=== PATIENT | male | born 1930 | race Caucasian/White ===

== ENCOUNTER → 2016-08-30 | Outpatient (CLI) | payer BC ==
[~2016-08-30] MED LIST: AMLO2.5T PO; ASCO500T16 PO; ASPCH81X PO; ATOR10TA88 PO; CETI10TA73 PO; CYAN10005 PO; DONE23TA PO; ERGO500037 PO; FOLI400T41 PO; HYDR-4715 PO; LACTCAP3 PO; LPT/40 PO; NRV/5 PO; OMEP20CA9 PO; PLV75 PO; RMNER16 PO; [UNRECOGNIZED DRUG - CODE] PO
[2016-08-30 12:46] LABS: ALT/SGPT 21 U/L (12-78); CHOLESTEROL 177 mg/dl (0-200); CHOLESTEROL/HDL RATIO 2.5; HDL CHOLESTEROL 70 mg/dl; TRIGLYCERIDES 88 mg/dl (0-150); VERY LOW DENSITY LIPOPROT CALC 18 mg/dl
== END | disposition home or self-care (01) ==
LOC: C.LAB 11:14
PROVIDERS: ATTEND Internal Medicine Cardiovascular Disease
DX: E78.2 Mixed hyperlipidemia (principal); Z79.899 Other long term (current) drug therapy

== ENCOUNTER → 2016-11-29 | Outpatient (CLI) | payer BC ==
[~2016-11-29] MED LIST changes: +ACET325T96 PO; +AMLO-110 PO; +ASPI81TA28 PO; +ATOR-24 PO; +ATOR10TA82 PO; -ATOR10TA88 PO; +BISA10SU3 PR; +CLOP1TAB15 PO; +IPRASOL4 INH; +QUET1TAB30 PO; +RXNS10 PO; +SENN-61 PO; +SERT25TA PO
[2016-11-29 12:25] LABS: BASO % 0.4 %; BASO ABS # 0.03 K/uL (0-0.2); COMPLETE YES; EOS % 3.4 %; HEMATOCRIT 45.7 % (42-52); IG% 0.3 %; LYMPH % 24.8 %; LYMPH ABS # 1.81 K/uL (1.2-3.4); MEAN CORPUSCULAR HEMOGLOBIN 30.1 pg (25-34); MEAN CORPUSCULAR HGB CONC 31.7 g/dl (32-36); MEAN PLATELET VOLUME 10.3 fL (7.4-10.4); MONO % 6.4 %; NEUT % 64.7 %; PLATELET COUNT 146 K/uL (130-400); RED BLOOD COUNT 4.81 M/uL (4.7-6.1); WHITE BLOOD COUNT 7.29 K/uL (4.8-10.8)
[2016-11-29 14:06] LABS: BLOOD UREA NITROGEN 23 mg/dl (7-18); BUN/CREATININE RATIO 19.4 (10-20); CALCIUM 9.3 mg/dl (8.5-10.1); CARBON DIOXIDE 28 mmol/L (21-32); CHLORIDE 111 mmol/L (98-107); GLUCOSE 110 mg/dl (70-99); POTASSIUM 4.1 mmol/L (3.5-5.1); SODIUM 147 mmol/L (136-145)
== END | disposition home or self-care (01) ==
LOC: C.LAB 11:13
PROVIDERS: ATTEND Internal Medicine Cardiovascular Disease
DX: Z79.899 Other long term (current) drug therapy (principal)

== ENCOUNTER 2016-12-30 02:03 | Emergency (ER) | payer BC ==
[~2016-12-30] VITALS: Ht 185.4 cm; Wt 82.4 kg
[~2016-12-30 02:03] MED LIST changes: -ACET325T96 PO; -AMLO-110 PO; -AMLO2.5T PO; -ASPCH81X PO; -ASPI81TA28 PO; -ATOR-24 PO; -BISA10SU3 PR; -CETI10TA73 PO; -CLOP1TAB15 PO; -IPRASOL4 INH; -LPT/40 PO; -NRV/5 PO; -PLV75 PO; -QUET1TAB30 PO; -RXNS10 PO; -SENN-61 PO; -SERT25TA PO; -[UNRECOGNIZED DRUG - CODE] PO
[2016-12-30 02:10] VITALS: TEMP 37.1
[2016-12-30 02:22] VITALS: O2SAT 95
[2016-12-30 02:23] VITALS: Ht 185.4 cm; Wt 82.4 kg
[2016-12-30] MEDS ORDERED: [UNRECOGNIZED DRUG - CODE] PO (02:24)
[2016-12-30] MEDS ORDERED: AMLO2.5T PO (02:24)
--- NOTE | 2016-12-30 02:24 | EMERGENCY ROOM VISIT NOTE ---
History Report prepared by Shastaibrodrigo: Neville Sierra Under the Supervision of: Dr. Jordan Herrera D.O. First contact with patient: 02:06 Chief Complaint: ALTERED MENTAL STATUS Stated Complaint: ALTERED MENTAL STATUS History of Present Illness The patient is an 86 year old male who presents to the Emergency Room with acute altered mental status this morning. Per nursing staff, the patient's called an ambulance because the patient appeared to be more confused than baseline. The patient does have a history of dementia. The patient's thought the patient had a subjective fever. The patient's heart rate has been low before per . She is unsure if he had some kind of infection. History is limited secondary to altered mental status. Source of History: patient, spouse/significant other, nursing staff History Limited By: AMS Onset: this morning Position: other (global) Quality: other (altered mental status) Timing: other (acute) Associated Symptoms: + fevers (subjective to ) Review of Systems ROS is limited secondary to altered mental status. Past Medical & Surgical Medical Problems: (1) ABDOM AORTIC ANEURYSM (2) Altered mental status (3) DIAB W NEURO MANIFEST, TYPE II OR UNSPEC TYPE, UNCONTROLLED (4) HYPERTENSION NOS (5) Prostatectomy (6) PURE HYPERCHOLESTEROLEM (7) Urinary incontinence Family History Noncontributory due advanced age Social History Smoking Status: Unknown if Ever Smoked Alcohol Use: occasionally Drug Use: none Marital Status: Housing Status: lives with family Occupation Status: retired Current/Historical Medications Scheduled Amlodipine Besylate (Norvasc), 2.5 MG PO DAILY Ascorbic Acid (Ascorbic Acid), 500 MG PO DAILY Atorvastatin (Lipitor), 10 MG PO DAILY Cetirizine Hcl (All Day Allergy), 1 TAB PO DAILY Cyanocobalamin (Vitamin B-12), 1,000 MCG PO DAILY Donepezil Hydrochloride (Aricept), 23 MG PO DAILY Ergocalciferol (Vitamin D 65874 Unit), 50,000 UNIT PO WK Folic Acid (Folvite), 400 MCG PO DAILY Galantamine Hydrobromide (Razadyne Ext Rel), 24 MG PO DAILY Omeprazole (Prilosec), 20 MG PO DAILY Allergies Coded Allergies: Haloperidol (Verified Allergy, Intermediate, ERYTHEMA MULTIFORME AT INJECTION SITES, 12/30/16) erythema multiforme at injection sites Physical Exam Vital Signs Date Time Temp Pulse Resp B/P Pulse Ox O2 Delivery O2 Flow Rate FiO2 12/30/16 02:57 40 156/74 61 162/88 65 155/133 12/30/16 02:22 95 Room Air 12/30/16 02:22 95 Room Air 12/30/16 02:15 36 12/30/16 02:10 37.1 44 25 161/68 96 Room Air Physical Exam GENERAL: Awake, alert, pleasantly confused but interactive. HENT: Normocephalic, atraumatic. Oropharynx unremarkable. EYES: Normal conjunctiva. Sclera non-icteric. NECK: Supple. No nuchal rigidity. FROM. No JVD. RESPIRATORY: Clear to auscultation. CARDIAC: Regular rate, normal rhythm. Extremities warm and well perfused. Pulses equal. ABDOMEN: Soft, non-distended. No tenderness to palpation. No rebound or guarding. No masses. RECTAL: Deferred. MUSCULOSKELETAL: Chest examination reveals no tenderness. The back is symmetrical on inspection without obvious abnormality. There is no CVA tenderness to palpation. No joint edema. LOWER EXTREMITIES: Calves are equal size bilaterally and non-tender. No edema. No discoloration. NEURO: Normal sensorium. No sensory or motor deficits noted. SKIN: No rash or jaundice noted. Medical Decision & Procedures ER Provider Diagnostic Interpretation: X ray results as stated below per my interpretation. Chest One View Portable: Negative for infiltrate. Laboratory Results 12/30/16 02:20 Red Blood Count 4.53, Mean Corpuscular Volume 95.6, Mean Corpuscular Hemoglobin 30.9, Mean Corpuscular Hemoglobin Concent 32.3, Mean Platelet Volume 9.9, Neutrophils (%) (Auto) 56.7, Lymphocytes (%) (Auto) 32.4, Monocytes (%) (Auto) 6.3, Eosinophils (%) (Auto) 3.7, Basophils (%) (Auto) 0.6, Neutrophils # (Auto) 3.93, Lymphocytes # (Auto) 2.25, Monocytes # (Auto) 0.44, Eosinophils # (Auto) 0.26, Basophils # (Auto) 0.04 12/30/16 02:20 Test 12/30/16 02:20 12/30/16 02:29 12/30/16 03:00 White Blood Count 6.94 K/uL (4.8-10.8) Red Blood Count 4.53 M/uL (4.7-6.1) Hemoglobin 14.0 g/dL (14.0-18.0) Hematocrit 43.3 % (42-52) Mean Corpuscular Volume 95.6 fL (80-100) Mean Corpuscular Hemoglobin 30.9 pg (25-34) Mean Corpuscular Hemoglobin Concent 32.3 g/dl (32-36) Platelet Count 146 K/uL (130-400) Mean Platelet Volume 9.9 fL (7.4-10.4) Neutrophils (%) (Auto) 56.7 % Lymphocytes (%) (Auto) 32.4 % Monocytes (%) (Auto) 6.3 % Eosinophils (%) (Auto) 3.7 % Basophils (%) (Auto) 0.6 % Neutrophils # (Auto) 3.93 K/uL (1.4-6.5) Lymphocytes # (Auto) 2.25 K/uL (1.2-3.4) Monocytes # (Auto) 0.44 K/uL (0.11-0.59) Eosinophils # (Auto) 0.26 K/uL (0-0.5) Basophils # (Auto) 0.04 K/uL (0-0.2) RDW Standard Deviation 48.6 fL (36.4-46.3) RDW Coefficient of Variation 13.8 % (11.5-14.5) Immature Granulocyte % (Auto) 0.3 % Immature Granulocyte # (Auto) 0.02 K/uL (0.00-0.02) Anion Gap 9.0 mmol/L (3-11) Est Creatinine Clear Calc Drug Dose 53.5 ml/min Estimated GFR () 69.6 Estimated GFR (Non- 60.0 BUN/Creatinine Ratio 23.6 (10-20) Calcium Level 8.4 mg/dl (8.5-10.1) Total Bilirubin 0.3 mg/dl (0.2-1) Direct Bilirubin < 0.1 mg/dl (0-0.2) Aspartate Amino Transf (AST/SGOT) 18 U/L (15-37) Alanine Aminotransferase (ALT/SGPT) 25 U/L (12-78) Alkaline Phosphatase 66 U/L (45-117) Total Protein 6.6 gm/dl (6.4-8.2) Albumin 3.5 gm/dl (3.4-5.0) Bedside Lactic Acid Venous 0.77 mmol/L (0.90-1.70) Urine Color YELLOW Urine Appearance SL CLOUDY (CLEAR) Urine pH 5.5 (4.5-7.5) Urine Specific [place] >= 1.030 (1.000-1.030) Urine Protein NEG (NEG) Urine Glucose (UA) NEG (NEG) Urine Ketones NEG (NEG) Urine Occult Blood NEG (NEG) Urine Nitrite NEG (NEG) Urine Bilirubin NEG (NEG) Urine Urobilinogen NEG (NEG) Urine Leukocyte Esterase NEG (NEG) Laboratory results reviewed by me ECG Indication: altered mental status Rate (beats per minute): 36 Rhythm: sinus bradycardia Findings: mobitz I block, left axis deviation, other (LVH. Non-specific T wave abnormality) ED Course 0210: The patient was evaluated in room B12b. A complete history and physical exam was performed. 0320: Checked on the patient. We are still waiting for a urine sample. 0358: I reevaluated the patient. Discussed results and discharge instructions with him and the : He verbalized understanding and agreement. The patient is ready for discharge. Medical Decision Differential diagnosis: Etiologies such as metabolic, infection, hypoglycemia, electrolyte abnormalities, cardiac sources, intracerebral event, toxicologic, neurologic, as well as others were entertained. Patient resting in no distress singing songs on repeat examination 4:02 AM. I discussed the workup with the patient and patient's at bedside. I see no signs of infection he would like to go home I've discussed the evaluation with him and his Impression Primary Impression: Dementia Scribe Attestation The scribe's documentation has been prepared under my direction and personally reviewed by me in its entirety. I confirm that the note above accurately reflects all work, treatment, procedures, and medical decision making performed by me. Departure Information Dispostion Home / Self-Care Referrals Mercedes Robles DO (PCP) Forms HOME CARE DOCUMENTATION FORM, IMPORTANT VISIT INFORMATION Patient Instructions Dementia, My [facility] Problem Qualifiers Primary Impression: Dementia Dementia type: unspecified type Dementia behavioral disturbance: without behavioral disturbance Qualified Codes: F03.90 - Unspecified dementia without behavioral disturbance
[2016-12-30] MEDS ORDERED: CETI10TA73 PO (02:27)
[2016-12-30 02:35] LABS: BASO % 0.6 %; BASO ABS # 0.04 K/uL (0-0.2); COMPLETE YES; EOS % 3.7 %; HEMATOCRIT 43.3 % (42-52); IG% 0.3 %; LYMPH % 32.4 %; LYMPH ABS # 2.25 K/uL (1.2-3.4); MEAN CELL VOLUME 95.6 fL (80-100); MEAN CORPUSCULAR HEMOGLOBIN 30.9 pg (25-34); MEAN CORPUSCULAR HGB CONC 32.3 g/dl (32-36); MEAN PLATELET VOLUME 9.9 fL (7.4-10.4); MONO % 6.3 %; NEUT % 56.7 %; PLATELET COUNT 146 K/uL (130-400); RED BLOOD COUNT 4.53 M/uL (4.7-6.1); WHITE BLOOD COUNT 6.94 K/uL (4.8-10.8)
[2016-12-30 03:00] LABS: ALT/SGPT 25 U/L (12-78); AST/SGOT 18 U/L (15-37); BLOOD UREA NITROGEN 26 mg/dl (7-18); BUN/CREATININE RATIO 23.6 (10-20); CALCIUM 8.4 mg/dl (8.5-10.1); CARBON DIOXIDE 29 mmol/L (21-32); CHLORIDE 115 mmol/L (98-107); GLUCOSE 118 mg/dl (70-99); SODIUM 153 mmol/L (136-145)
[2016-12-30 03:02] LABS: ALKALINE PHOSPHATASE 66 U/L (45-117)
[2016-12-30 03:48] LABS: MANUAL MICROSCOPIC REQUIRED? NO; URINE APPEARANCE SL CLOUDY (CLEAR); URINE BILIRUBIN NEG (NEG); URINE COLOR YELLOW; URINE NITRITE NEG (NEG); URINE PH 5.5 (4.5-7.5); URINE SPECIFIC GRAVITY >= 1.030 (1.000-1.030); UROBILINOGEN NEG (NEG)
[2016-12-30 03:53] LABS: REVIEW REQ? NO
[2016-12-30 03:58] VITALS: BP 148/95; PULSE 48; O2SAT 96
--- NOTE | 2016-12-30 06:00 | DIAGNOSTIC IMAGING REPORT ---
CHEST ONE VIEW PORTABLE CLINICAL HISTORY: cough dyspnea COMPARISON STUDY: 10/21/2015 FINDINGS: Mild stable cardiomegaly. Probable infiltrate left base. Peribronchial prominence throughout. IMPRESSION: Small parenchymal infiltrate left base. Chronic peribronchial prominence. Electronically signed by: Michael Sethi M.D. 12/30/2016 5:58 AM Dictated Date/Time: 12/30/2016 5:58 AM
[2017-06-18] MEDS ORDERED: ACET325T96 PO (12:42)
[2017-06-18] MEDS ORDERED: QUET1TAB30 PO ×2 (12:42)
[2017-06-18] MEDS ORDERED: ASPI81TA28 PO (12:42)
[2017-06-18] MEDS ORDERED: AMLO-110 PO (12:42)
[2017-06-18] MEDS ORDERED: SENN-61 PO (12:42)
[2017-06-18] MEDS ORDERED: CLOP1TAB15 PO (12:42)
[2017-06-18] MEDS ORDERED: IPRASOL4 INH (12:42)
[2017-06-18] MEDS ORDERED: ATOR-24 PO (12:42)
[2017-06-18] MEDS ORDERED: SERT25TA PO (12:42)
[2017-06-18] MEDS ORDERED: BISA10SU3 PR (12:42)
[2017-06-22] MEDS ORDERED: RXNS10 PO (14:06)
== END 2016-12-30 04:23 | disposition home or self-care (01) ==
LOC: EDBD 02:03 → C.EDB 02:04
DX: F03.90 Unspecified dementia, unspecified severity, without behavioral disturbance, psychotic disturbance, mood disturbance, and anxiety (principal); I44.1 Atrioventricular block, second degree; I10 Essential (primary) hypertension; E11.40 Type 2 diabetes mellitus with diabetic neuropathy, unspecified; E78.00 Pure hypercholesterolemia, unspecified; Z79.899 Other long term (current) drug therapy; Z88.8 Allergy status to other drugs, medicaments and biological substances

== ENCOUNTER 2017-03-05 04:02 | Emergency (ER) | payer BC ==
[~2017-03-05 04:02] MED LIST changes: +AMLO2.5T PO; -ATOR10TA82 PO; +ATOR10TA88 PO; +CETI10TA73 PO; -HYDR-4715 PO; -LACTCAP3 PO; -RMNER16 PO; +[UNRECOGNIZED DRUG - CODE] PO
[2017-03-05 04:08] VITALS: TEMP 36.9
--- NOTE | 2017-03-05 04:34 | EMERGENCY ROOM VISIT NOTE ---
History Report prepared by Joao: Garrison Baron Under the Supervision of: Dr. Gatito Olguin M.D. First contact with patient: 04:05 Chief Complaint: FALL Stated Complaint: FALL History of Present Illness The patient is an 86 year old male who presents to the Emergency Room with complaints of a sudden fall occurring prior to arrival. The patient's states that she put him to bed, and she went to sleep on the couch. Then, she checked on him later she found him in the garage on the floor. He denies any abdominal pain. The patient has a history of dementia. Source of History: patient, spouse/significant other Onset: prior to arrival Position: other (global) Quality: other (fall) Timing: other (sudden) Associated Symptoms: No abdominal pain Review of Systems See HPI for pertinent positives & negatives. A total of 10 systems reviewed and were otherwise negative. Past Medical & Surgical Medical Problems: (1) ABDOM AORTIC ANEURYSM (2) Altered mental status (3) DIAB W NEURO MANIFEST, TYPE II OR UNSPEC TYPE, UNCONTROLLED (4) HYPERTENSION NOS (5) Prostatectomy (6) PURE HYPERCHOLESTEROLEM (7) Urinary incontinence Family History Noncontributory due advanced age Social History Smoking Status: Unknown if Ever Smoked Alcohol Use: occasionally Drug Use: none Marital Status: Housing Status: lives with family Occupation Status: retired Current/Historical Medications Scheduled Aspirin (Aspirin Chewable), 81 MG PO DAILY Atorvastatin (Lipitor), 10 MG PO DAILY Donepezil Hydrochloride (Aricept), 23 MG PO DAILY Galantamine Hydrobromide (Razadyne Ext Rel), 24 MG PO DAILY Allergies Coded Allergies: Haloperidol (Verified Allergy, Intermediate, ERYTHEMA MULTIFORME AT INJECTION SITES, 03/05/17) erythema multiforme at injection sites Physical Exam Vital Signs Date Time Temp Pulse Resp B/P (MAP) Pulse Ox O2 Delivery O2 Flow Rate FiO2 03/05/17 06:00 50 16 199/90 96 Room Air 03/05/17 05:30 50 17 161/83 96 Room Air 03/05/17 05:00 50 16 153/76 94 Room Air 03/05/17 04:12 58 03/05/17 04:08 36.9 57 14 127/88 97 Room Air Physical Exam GENERAL: Patient is demented in no distress. Laughing joyously. HEENT: No acute trauma, normocephalic atraumatic, mucous membranes moist, no nasal congestion, no scleral icterus. NECK: No stridor, no adenopathy, no meningismus, trachea is midline. LUNGS: No dyspnea. Clear to auscultation and equal bilaterally. No wheeze, no rhonchi. HEART: Regular rate and rhythm. No murmurs, rubs, gallops appreciated. ABDOMEN: Soft, nontender, bowel sounds positive, no masses appreciated, no peritonitis. BACK: No midline tenderness, no CVA tenderness EXTREMITIES: Abrasion and skin tear on the bilateral elbows. Mild edema in the left lower leg compared to the right which states is chronic. Normal motion all extremities, no cyanosis. NEUROLOGIC: Alert and oriented, no acute motor or sensory deficits, no focal weakness, cranial nerves grossly intact. SKIN: No rash, no jaundice, no diaphoresis. Medical Decision & Procedures ER Provider Diagnostic Interpretation: Radiology results and stated below per my review and radiologist interpretation: X ray results are stated below per my interpretation: Chest: 1 view: No infiltrate, no effusion, normal cardiac border. Pelvis: No fracture. No dislocation. CT HEAD: No evidence of acute infarct, hemorrhage, mass or edema. Chronic small vessel ischemic disease and senescent changes. No acute calvarial abnormality. Minimal mucosal thickening of the paranasal sinuses. CT C SPINE: No evidence of acute fracture or traumatic malalignment of the cervical spine. Multilevel degenerative changes. Pleural parenchymal scarring noted within the lung apices. ED Course 0405: The patient was evaluated in room A11. A complete history and physical exam was performed. 0558: Reevaluated the patient. Discussed results and discharge instructions: The verbalized understanding and agreement. The patient is ready for discharge. Medical Decision 86 yr old male arrives following fall at home. Abrasions to bilateral elbows but otherwise no other injuries. No other complaints. With dementia felt CT head/neck reasonable which fortunately were negative. CXR/Pelv negative. History of AAA but no indication for imaging and no abdominal discomfort. makes clear they have decided against surgery. Left leg mid edema which she notes is chronic. I do not feel that US indicated as even if dvt it is chronic and patient is not to be on blood thinner. Wounds dressed and discharged home. Medication Reconcilliation Current Medication List: was personally reviewed by me Blood Pressure Screening Patient's blood pressure: Normal blood pressure Impression Primary Impression: Fall Additional Impressions: Contusion of multiple sites Elbow abrasion Scribe Attestation The scribe's documentation has been prepared under my direction and personally reviewed by me in its entirety. I confirm that the note above accurately reflects all work, treatment, procedures, and medical decision making performed by me. Departure Information Dispostion Home / Self-Care Referrals Mercedes Robles DO (PCP) Forms HOME CARE DOCUMENTATION FORM, IMPORTANT VISIT INFORMATION Patient Instructions ED Abrasion, ED Mechanical Fall, My [facility] Problem Qualifiers Additional Impressions: Elbow abrasion Encounter type: initial encounter Laterality: unspecified laterality Qualified Codes: S50.319A - Abrasion of unspecified elbow, initial encounter
[2017-03-05] MEDS ORDERED: ASPCH81X PO (05:10)
[2017-03-05 06:00] VITALS: BP 199/90; PULSE 50; O2SAT 96
--- NOTE | 2017-03-05 06:21 | DIAGNOSTIC IMAGING REPORT ---
HEAD WITHOUT CONTRAST (CT) CT DOSE: HISTORY: Mental status change fall, dementia TECHNIQUE: Multiaxial CT images of the head were performed without the use of intravenous contrast. A dose lowering technique was utilized adhering to the principles of ALARA. Comparison: None. Findings: The paranasal sinuses and mastoid air cells are clear. Age-related mild atrophic change. Moderate chronic small vessel change throughout cerebellar as well as cerebral hemispheres. No acute intracranial hemorrhage. No midline shift. Impression: Age-related change. No acute process. The above report was generated using voice recognition software. It may contain grammatical, syntax or spelling errors. Electronically signed by: Mihcael Sethi M.D. 03/05/2017 6:20 AM Dictated Date/Time: 03/05/2017 6:19 AM
--- NOTE | 2017-03-05 06:41 | DIAGNOSTIC IMAGING REPORT ---
CHEST ONE VIEW PORTABLE HISTORY: 86 years-old Male fall COMPARISON: 12/30/2016 chest radiograph, CT of the chest 10/20/2016 TECHNIQUE: Portable upright AP view of the chest FINDINGS: Cardiac silhouette is enlarged. There is mild tortuosity and atherosclerosis of the thoracic aorta. There is unchanged mild pleural parenchymal scarring of left lung base. No pneumothorax, large pleural effusion or focal airspace consolidation is identified. Lungs are mildly hyperinflated Degenerative changes are seen within the bilateral shoulders. The bones are grossly intact. IMPRESSION: Mild hyperinflation without acute cardiopulmonary process. The above report was generated using voice recognition software. It may contain grammatical, syntax or spelling errors. Electronically signed by: Tacho Dang M.D. 03/05/2017 6:40 AM Dictated Date/Time: 03/05/2017 6:38 AM
--- NOTE | 2017-03-05 06:45 | DIAGNOSTIC IMAGING REPORT ---
CERVICAL SPINE W/O CT DOSE: 1179.23 mGy.cm HISTORY: Trauma fall, dementia TECHNIQUE: Multiaxial CT images of the cervical spine were performed and reformatted in the sagittal and coronal plane without the use of contrast. A dose lowering technique was utilized adhering to the principles of ALARA. COMPARISON: None. FINDINGS: No fractures. No subluxation. Prevertebral soft tissues and the C1-C2 interval are intact. No pneumothorax. Minimal grade 1 anterolisthesis C5 on C6 of the a degenerative basis. Degenerative disc changes throughout. Considerable degenerative change posterior elements. IMPRESSION: Degenerative change. No acute process. The above report was generated using voice recognition software. It may contain grammatical, syntax or spelling errors. Electronically signed by: Michael Sethi M.D. 03/05/2017 6:44 AM Dictated Date/Time: 03/05/2017 6:42 AM
--- NOTE | 2017-03-05 06:51 | DIAGNOSTIC IMAGING REPORT ---
PELVIS 1 OR 2 VIEW ROUTINE HISTORY: 86 years-old Male acute pelvic pain status post fall COMPARISON: CTA abdomen and pelvis 04/24/2016 TECHNIQUE: Portable AP view of the pelvis FINDINGS: The bones are mildly demineralized which limits evaluation for acute nondisplaced fracture. There are surgical clips within the pelvis compatible with patient's history of prior prostatectomy. Moderate degenerative changes involve the bilateral femoral acetabular joints. Advanced degenerative changes of the lower lumbar levels also noted. No acute fracture or dislocation identified involving the bilateral femora or bony pelvis. IMPRESSION: 1. No acute fracture or dislocation identified involving the pelvis. 2. Moderate degenerative changes of the bilateral femoral acetabular joints. The above report was generated using voice recognition software. It may contain grammatical, syntax or spelling errors. Electronically signed by: Tacho Dang M.D. 03/05/2017 6:50 AM Dictated Date/Time: 03/05/2017 6:47 AM
== END 2017-03-05 06:27 | disposition home or self-care (01) ==
LOC: EDBD 04:02 → C.EDA 04:03
DX: T14.8 Other injury of unspecified body region (principal); S59.901A Unspecified injury of right elbow, initial encounter; S59.902A Unspecified injury of left elbow, initial encounter; W19.XXXA Unspecified fall, initial encounter; I10 Essential (primary) hypertension; E11.9 Type 2 diabetes mellitus without complications; E78.00 Pure hypercholesterolemia, unspecified; Z79.82 Long term (current) use of aspirin; Z79.899 Other long term (current) drug therapy; Z88.8 Allergy status to other drugs, medicaments and biological substances

== ENCOUNTER 2017-03-14 13:33 | Inpatient (IN) | payer BC, OTHER ==
[~2017-03-14] VITALS: Ht 182.9 cm; Wt 64.8 kg
[~2017-03-14 13:33] MED LIST changes: -AMLO2.5T PO; -ASCO500T16 PO; +ASPCH81X PO; -CETI10TA73 PO; -CYAN10005 PO; -ERGO500037 PO; -FOLI400T41 PO; -OMEP20CA9 PO; +SODIUM CHLORIDE 0.9% 1000ML 1,000 ML IV SCH
--- NOTE | 2017-03-14 13:46 | DIAGNOSTIC IMAGING REPORT ---
CT HEAD WITHOUT CONTRAST (CT) CLINICAL HISTORY: Stroke COMPARISON STUDY: 03/05/2017 TECHNIQUE: Axial CT of the brain is performed from the vertex to the skull base. IV contrast was not administered for this examination. A dose lowering technique was utilized adhering to the principles of ALARA. CT DOSE: 729.78 mGycm FINDINGS: No intra or extra-axial mass lesions are visualized. There is no CT evidence of acute cortical infarction. There is no evidence of midline shift. There is no acute hemorrhage. No calvarial fractures are visualized. There are patchy white matter hypodensities likely on a small vessel basis. There is mild ventricular dilatation, likely secondary to volume loss There is no evidence of acute sinusitis IMPRESSION: No acute intracranial findings Electronically signed by: Aldo Borden M.D. 03/14/2017 1:45 PM Dictated Date/Time: 03/14/2017 1:44 PM
[2017-03-14 14:23] LABS: BASO % 0.2 %; BASO ABS # 0.01 K/uL (0-0.2); COMPLETE YES; EOS % 2.9 %; HEMATOCRIT 43.4 % (42-52); IG% 0.3 %; LYMPH % 24.4 %; MEAN CELL VOLUME 92.1 fL (80-100); MEAN CORPUSCULAR HGB CONC 33.6 g/dl (32-36); MEAN PLATELET VOLUME 9.7 fL (7.4-10.4); MONO % 6.5 %; NEUT % 65.7 %; PLATELET COUNT 154 K/uL (130-400); RED BLOOD COUNT 4.71 M/uL (4.7-6.1); WHITE BLOOD COUNT 6.15 K/uL (4.8-10.8)
[2017-03-14 14:33] LABS: PARTIAL THROMBOPLASTIN RATIO 1.3
[2017-03-14] MEDS ORDERED: AMLO2.5T PO (14:39)
[2017-03-14 14:41] LABS: BLOOD UREA NITROGEN 16 mg/dl (7-18); BUN/CREATININE RATIO 14.7 (10-20); CALCIUM 8.9 mg/dl (8.5-10.1); CARBON DIOXIDE 30 mmol/L (21-32); CHLORIDE 109 mmol/L (98-107); GLUCOSE 94 mg/dl (70-99); POTASSIUM 4.1 mmol/L (3.5-5.1); SODIUM 142 mmol/L (136-145)
[2017-03-14 14:45] LABS: CKMB/CK RATIO 1.9 (0-3.0)
--- NOTE | 2017-03-14 15:11 | DIAGNOSTIC IMAGING REPORT ---
SINGLE VIEW CHEST CLINICAL HISTORY: Change in mental status. FINDINGS: An AP, portable, upright chest radiograph is compared to study dated 03/05/2017 and correlated with chest CT dated 10/21/2015. The examination is degraded by portable technique and patient rotation. The heart is enlarged and there is atherosclerotic calcification of the thoracic aorta. The pulmonary vasculature is noncongested. Chronic interstitial thickening is similar to previous. There are bibasilar airspace opacities. No large pleural effusion or pneumothorax is seen. Biapical scarring is observed. The skeletal structures are osteopenic. The bony thorax is grossly intact. IMPRESSION: 1. Cardiomegaly without radiographic evidence of congestive failure. 2. There are bibasilar airspace opacities. This could represent atelectasis versus an infectious/inflammatory pneumonitis. Clinical correlation will be required. Electronically signed by: Luis Enrique Lombardi M.D. 03/14/2017 3:09 PM Dictated Date/Time: 03/14/2017 3:08 PM
--- NOTE | 2017-03-14 16:15 | EMERGENCY ROOM VISIT NOTE ---
History Report prepared by Joao: Swetha Ewing Under the Supervision of: Dr. Mazin Castaneda D.O. First contact with patient: 13:23 Chief Complaint: CVA SYMPTOMS Stated Complaint: STROKE SYMPTOMS History of Present Illness The patient is an 86 year old male who presents to the Emergency Room with resolved left sided weakness starting PHYSICIAN ANESTHESIOLOGIST. The patient presents to the ED by EMS. The patient's reports that he was sleeping in his chair and she was unable to wake him up. EMS states that he was unable to move his left arm and leg. His states that he appears at baseline now. The slight facial droop is normal for him and he often does not answer questions. He has a history of AAA, dementia, and diabetes. The history is limited due to the patient's dementia. Source of History: patient, spouse/significant other, EMS History Limited By: dementia Onset: PHYSICIAN ANESTHESIOLOGIST Position: other (global) Quality: other (left sided weakness) Timing: resolved Note: Pt was difficult to rouse. Review of Systems See HPI for pertinent positives & negatives. A total of 10 systems reviewed and were otherwise negative. Past Medical & Surgical Medical Problems: (1) ABDOM AORTIC ANEURYSM (2) Altered mental status (3) DIAB W NEURO MANIFEST, TYPE II OR UNSPEC TYPE, UNCONTROLLED (4) HYPERTENSION NOS (5) Prostatectomy (6) PURE HYPERCHOLESTEROLEM (7) Urinary incontinence Family History Noncontributory due advanced age Social History Smoking Status: Unknown if Ever Smoked Alcohol Use: occasionally Drug Use: none Marital Status: Housing Status: lives with family Occupation Status: retired Current/Historical Medications Scheduled Amlodipine Besylate (Norvasc), 2.5 MG PO DAILY Aspirin (Aspirin Chewable), 81 MG PO DAILY Atorvastatin (Lipitor), 10 MG PO DAILY Allergies Coded Allergies: Haloperidol (Verified Allergy, Intermediate, ERYTHEMA MULTIFORME AT INJECTION SITES, 03/14/17) erythema multiforme at injection sites Physical Exam Vital Signs Date Time Temp Pulse Resp B/P (MAP) Pulse Ox O2 Delivery O2 Flow Rate FiO2 03/14/17 14:28 51 20 99 03/14/17 14:23 49 18 96 03/14/17 14:18 43 16 99 03/14/17 14:13 34 17 98 03/14/17 14:08 45 17 99 03/14/17 14:03 51 20 95 03/14/17 13:58 46 15 03/14/17 13:57 38 03/14/17 13:56 94 Room Air 03/14/17 13:49 44 16 178/94 92 Room Air 03/14/17 13:48 178/94 Physical Exam VITAL SIGNS: were reviewed as above. GENERAL:Non-toxic in appearance. SKIN: Warm dry and pink. HEAD: Normocephalic and atraumatic. OROPHARYNX: Is clear and moist NECK: Supple without lymphadenopathy or meningismus. LUNGS: clear. HEART: Regular rate and rhythm. ABDOMEN: Soft and nontender. EXTREMITIES: Warm and well perfused. NEUROLOGICALLY: Awake and alert, history of dementia, answers some questions appropriately, is present and states he is at baseline, follows some commands, moves all extremities, does not follow compete neuro exam, chronic left sided facial droop per , normal response to painful stimuli. MUSCULOSKELETAL: Good muscle tone. No evidence of trauma. Medical Decision & Procedures ER Provider Diagnostic Interpretation: X ray results and stated below per my interpretation and radiology interpretation. Radiology results as stated below per my review and radiologist interpretation: SINGLE VIEW CHEST CLINICAL HISTORY: Change in mental status. FINDINGS: An AP, portable, upright chest radiograph is compared to study dated 03/05/2017 and correlated with chest CT dated 10/21/2015. The examination is degraded by portable technique and patient rotation. The heart is enlarged and there is atherosclerotic calcification of the thoracic aorta. The pulmonary vasculature is noncongested. Chronic interstitial thickening is similar to previous. There are bibasilar airspace opacities. No large pleural effusion or pneumothorax is seen. Biapical scarring is observed. The skeletal structures are osteopenic. The bony thorax is grossly intact. IMPRESSION: 1. Cardiomegaly without radiographic evidence of congestive failure. 2. There are bibasilar airspace opacities. This could represent atelectasis versus an infectious/inflammatory pneumonitis. Clinical correlation will be required. Electronically signed by: Luis Enrique Lombardi M.D. 03/14/2017 3:09 PM Dictated Date/Time: 03/14/2017 3:[address] HEAD WITHOUT CONTRAST (CT) CLINICAL HISTORY: Stroke COMPARISON STUDY: 03/05/2017 TECHNIQUE: Axial CT of the brain is performed from the vertex to the skull base. IV contrast was not administered for this examination. A dose lowering technique was utilized adhering to the principles of ALARA. CT DOSE: 729.78 mGycm FINDINGS: No intra or extra-axial mass lesions are visualized. There is no CT evidence of acute cortical infarction. There is no evidence of midline shift. There is no acute hemorrhage. No calvarial fractures are visualized. There are patchy white matter hypodensities likely on a small vessel basis. There is mild ventricular dilatation, likely secondary to volume loss There is no evidence of acute sinusitis IMPRESSION: No acute intracranial findings Electronically signed by: Aldo Borden M.D. 03/14/2017 1:45 PM Dictated Date/Time: 03/14/2017 1:44 PM Laboratory Results 03/14/17 13:54 Red Blood Count 4.71, Mean Corpuscular Volume 92.1, Mean Corpuscular Hemoglobin 31.0, Mean Corpuscular Hemoglobin Concent 33.6, Mean Platelet Volume 9.7, Neutrophils (%) (Auto) 65.7, Lymphocytes (%) (Auto) 24.4, Monocytes (%) (Auto) 6.5, Eosinophils (%) (Auto) 2.9, Basophils (%) (Auto) 0.2, Neutrophils # (Auto) 4.04, Lymphocytes # (Auto) 1.50, Monocytes # (Auto) 0.40, Eosinophils # (Auto) 0.18, Basophils # (Auto) 0.01 03/14/17 13:54 Test 03/14/17 13:25 03/14/17 13:54 White Blood Count 6.15 K/uL (4.8-10.8) Red Blood Count 4.71 M/uL (4.7-6.1) Hemoglobin 14.6 g/dL (14.0-18.0) Hematocrit 43.4 % (42-52) Mean Corpuscular Volume 92.1 fL (80-100) Mean Corpuscular Hemoglobin 31.0 pg (25-34) Mean Corpuscular Hemoglobin Concent 33.6 g/dl (32-36) Platelet Count 154 K/uL (130-400) Mean Platelet Volume 9.7 fL (7.4-10.4) Neutrophils (%) (Auto) 65.7 % Lymphocytes (%) (Auto) 24.4 % Monocytes (%) (Auto) 6.5 % Eosinophils (%) (Auto) 2.9 % Basophils (%) (Auto) 0.2 % Neutrophils # (Auto) 4.04 K/uL (1.4-6.5) Lymphocytes # (Auto) 1.50 K/uL (1.2-3.4) Monocytes # (Auto) 0.40 K/uL (0.11-0.59) Eosinophils # (Auto) 0.18 K/uL (0-0.5) Basophils # (Auto) 0.01 K/uL (0-0.2) RDW Standard Deviation 44.8 fL (36.4-46.3) RDW Coefficient of Variation 13.2 % (11.5-14.5) Immature Granulocyte % (Auto) 0.3 % Immature Granulocyte # (Auto) 0.02 K/uL (0.00-0.02) Prothrombin Time 11.0 SECONDS (9.0-12.0) Prothromb Time International Ratio 1.0 (0.9-1.1) Activated Partial Thromboplast Time 33.0 SECONDS (21.0-31.0) Partial Thromboplastin Ratio 1.3 Anion Gap 3.0 mmol/L (3-11) Est Creatinine Clear Calc Drug Dose 51.9 ml/min Estimated GFR () 69.6 Estimated GFR (Non- 60.0 BUN/Creatinine Ratio 14.7 (10-20) Calcium Level 8.9 mg/dl (8.5-10.1) Total Creatine Kinase 58 U/L (39-308) Creatine Kinase MB 1.1 ng/ml (0.5-3.6) Creatine Kinase MB Ratio 1.9 (0-3.0) Troponin I < 0.015 ng/ml (0-0.045) Laboratory results as stated above per my review. ECG Indication: weakness Rate (beats per minute): 37 Rhythm: sinus rhythm Findings: mobitz I block, no ectopy, other (no acute injury) Comparison ECG Date: 30-Dec-2016 Change: 2nd degree type 1 heart block is chronic and unchanged. ED Course 1325: NSS 1000 ml @ 50 mls/hr IV. 1344: Previous medical records were reviewed. The patient was evaluated in room B1. A complete history and physical examination was performed. 1522: I discussed the patient's case with Dr. Ortega, [facility] cardiology. He recommends admission. 1535: On reevaluation, the patient is stable. I discussed the results and findings with his . They verbalized agreement of the treatment plan. The patient will be evaluated for further management and care. 1550: I discussed the patient's case with Dr. Jeff, [facility] hospitalist. The patient will be evaluated for further treatment and disposition. Medical Decision Differential includes acute coronary syndrome, myocardial infarction, CVA, TIA, anemia, infection, pneumonia, UTI, pyelonephritis, poor nutrition, dehydration, electrolyte disturbance,hypoglycemia. This is an 86-year-old male who presents to the ED with a chief complaint of an unresponsive episode. The patient, according to the was hard to arouse. EMS was called. The patient was evaluated by EMS and was felt to have some left -sided weakness. The patient came in as a stroke alert. The patient was awake and alert at the time that he arrived here. No intervention was performed by EMS. The patient does have a chronic left-sided facial droop according to the . He initially on exam seemed to be a little weak on the left side but he is a difficult historian and does not follow commands well because of his dementia. Patient was observed to move all 4 extremities with normal strength and symmetric strength on the initial evaluation. The patient denies any specific complaints. CT scan of the brain did not show any acute process. Chest x-ray was negative for acute disease. EKG shows a sinus rhythm with a second-degree heart block Mobitz type I with a heart rate in the 40s. The patient's heart rate here was as low as 27 and remained in the 30s and 40s. The patient had a good blood pressure with this in the 150-170 systolic range. The patient was not symptomatic with this. The patient's CBC, PRP, troponin were unremarkable. I spoke with Dr. Aguilar about this patient. He recommends the patient be seen for pacemaker. The states that he was seen previously by Dr. Dunn for pacemaker evaluation on his previous admission but it was decided not to place a pacemaker at that time. The patient will be admitted by the hospitalist service for further inpatient evaluation and care. Medication Reconcilliation Current Medication List: was personally reviewed by me Blood Pressure Screening Patient's blood pressure: Elevated blood pressure Blood pressure disposition: Referred to PCP Consults Time Called: 1519 Consulting Physician: Dr. Ortega [facility] cardiology Returned Call: [phone] I discussed the patient's case with him. He recommends admission. Additional Consults: Time Called: 152 Consulted Physician: ANSHUL Callaway hospitalist Returned Call: [phone] Additional Comments: Discussed the patient's case. The patient will be evaluated for further treatment and disposition. Impression Primary Impression: Symptomatic bradycardia Additional Impressions: Unresponsive episode Second degree atrioventricular block, Mobitz (type) I Scribe Attestation The scribe's documentation has been prepared under my direction and personally reviewed by me in its entirety. I confirm that the note above accurately reflects all work, treatment, procedures, and medical decision making performed by me. Departure Information Dispostion Being Evaluated By Hospitalist Referrals John Xie III, CRNP (PCP) Forms WORK / SCHOOL INSTRUCTIONS, HOME CARE DOCUMENTATION FORM, IMPORTANT VISIT INFORMATION Patient Instructions My [facility] Health Problem Qualifiers
--- NOTE | 2017-03-14 16:22 | History and Physical ---
History & Physical Date & Time of Service: Mar 14, 2017 at 16:12 Chief Complaint: Stroke Symptoms Primary Care Physician: John Xie III, CRNP History of Present Illness Source: family, clinic records, hospital records This patient is an 86-year-old male with a history of dementia that was brought to the emergency department by EMS for an episode of unresponsiveness. The patient's reports that she was unable to wake him, which prompted her to call EMS. Upon arrival, there was questionable left-sided weakness. The patient is reportedly now back to baseline. Most of the history is taken from the as the patient has severe dementia. He currently is able to deny any pain. No history of CVA. No reported illnesses according to the . Of note, EMS crew was concern that there is left facial droop. The patient's tells me that this is chronic. Past Medical/Surgical History Medical Problems: (1) ABDOM AORTIC ANEURYSM Status: Chronic (2) DIAB W NEURO MANIFEST, TYPE II OR UNSPEC TYPE, UNCONTROLLED Status: Resolved (3) HYPERTENSION NOS Status: Chronic (4) Prostatectomy Status: Resolved (5) PURE HYPERCHOLESTEROLEM Status: Chronic (6) Urinary incontinence Status: Chronic Family History Noncontributory due advanced age Social History Smoking Status: Former Smoker Smokeless Tobacco Use: No Alcohol Use: none Drug Use: none Marital Status: Housing status: lives with significant other Occupational Status: retired Immunizations History of Influenza Vaccine: Yes History of Tetanus Vaccine?: Yes Tetanus Immunization Date: May 19, 2005 History of Pneumococcal: Yes History of Hepatitis B Vaccine: No Multi-Drug Resistant Organisms History of MDRO: No Allergies Coded Allergies: Haloperidol (Verified Allergy, Intermediate, ERYTHEMA MULTIFORME AT INJECTION SITES, 03/14/17) erythema multiforme at injection sites Home Medications Scheduled Amlodipine Besylate (Norvasc), 2.5 MG PO DAILY Aspirin (Aspirin Chewable), 81 MG PO DAILY Atorvastatin (Lipitor), 10 MG PO DAILY Review of Systems Unable to perform secondary to mental state Physical Exam Vital Signs Date Time Temp Pulse Resp B/P (MAP) Pulse Ox O2 Delivery O2 Flow Rate FiO2 03/14/17 14:28 51 20 99 03/14/17 14:23 49 18 96 03/14/17 14:18 43 16 99 03/14/17 14:13 34 17 98 03/14/17 14:08 45 17 99 03/14/17 14:03 51 20 95 03/14/17 13:58 46 15 03/14/17 13:57 38 03/14/17 13:56 94 Room Air 03/14/17 13:49 44 16 178/94 92 Room Air 03/14/17 13:48 178/94 General Appearance: no apparent distress (86-year-old male, awake and alert) Head: normocephalic Eyes: EOMI Respiratory/Chest: lungs clear Cardiovascular: no murmur, + bradycardia, + irregularly irregular Abdomen/GI: normal bowel sounds, non tender, soft Neurologic/Psych: + pertinent finding (neuro exam is limited as the patient does not follow commands. He answers some questions appropriately. He appears to be using all of his limbs without difficulty. Left facial droop noted.) Skin: warm/dry Diagnostics Laboratory Results Results Past 24 Hours Test 03/14/17 13:25 03/14/17 13:54 Range/Units White Blood Count 6.15 4.8-10.8 K/uL Red Blood Count 4.71 4.7-6.1 M/uL Hemoglobin 14.6 14.0-18.0 g/dL Hematocrit 43.4 42-52 % Mean Corpuscular Volume 92.1 80-100 fL Mean Corpuscular Hemoglobin 31.0 25-34 pg Mean Corpuscular Hemoglobin Concent 33.6 32-36 g/dl Platelet Count 154 130-400 K/uL Mean Platelet Volume 9.7 7.4-10.4 fL Neutrophils (%) (Auto) 65.7 % Lymphocytes (%) (Auto) 24.4 % Monocytes (%) (Auto) 6.5 % Eosinophils (%) (Auto) 2.9 % Basophils (%) (Auto) 0.2 % Neutrophils # (Auto) 4.04 1.4-6.5 K/uL Lymphocytes # (Auto) 1.50 1.2-3.4 K/uL Monocytes # (Auto) 0.40 0.11-0.59 K/uL Eosinophils # (Auto) 0.18 0-0.5 K/uL Basophils # (Auto) 0.01 0-0.2 K/uL RDW Standard Deviation 44.8 36.4-46.3 fL RDW Coefficient of Variation 13.2 11.5-14.5 % Immature Granulocyte % (Auto) 0.3 % Immature Granulocyte # (Auto) 0.02 0.00-0.02 K/uL Prothrombin Time 11.0 9.0-12.0 SECONDS Prothromb Time International Ratio 1.0 0.9-1.1 Activated Partial Thromboplast Time 33.0 21.0-31.0 SECONDS Partial Thromboplastin Ratio 1.3 Sodium Level 142 136-145 mmol/L Potassium Level 4.1 3.5-5.1 mmol/L Chloride Level 109 98-107 mmol/L Carbon Dioxide Level 30 21-32 mmol/L Anion Gap 3.0 3-11 mmol/L Blood Urea Nitrogen 16 7-18 mg/dl Creatinine 1.10 0.60-1.40 mg/dl Est Creatinine Clear Calc Drug Dose 51.9 ml/min Estimated GFR () 69.6 Estimated GFR (Non- 60.0 BUN/Creatinine Ratio 14.7 10-20 Random Glucose 94 70-99 mg/dl Calcium Level 8.9 8.5-10.1 mg/dl Total Creatine Kinase 58 39-308 U/L Creatine Kinase MB 1.1 0.5-3.6 ng/ml Creatine Kinase MB Ratio 1.9 0-3.0 Troponin I < 0.015 0-0.045 ng/ml Diagnostic Radiology SINGLE VIEW CHEST CLINICAL HISTORY: Change in mental status. FINDINGS: An AP, portable, upright chest radiograph is compared to study dated 03/05/2017 and correlated with chest CT dated 10/21/2015. The examination is degraded by portable technique and patient rotation. The heart is enlarged and there is atherosclerotic calcification of the thoracic aorta. The pulmonary vasculature is noncongested. Chronic interstitial thickening is similar to previous. There are bibasilar airspace opacities. No large pleural effusion or pneumothorax is seen. Biapical scarring is observed. The skeletal structures are osteopenic. The bony thorax is grossly intact. IMPRESSION: 1. Cardiomegaly without radiographic evidence of congestive failure. 2. There are bibasilar airspace opacities. This could represent atelectasis versus an infectious/inflammatory pneumonitis. Clinical correlation will be required. Electronically signed by: Luis Enrique Lombardi M.D. 03/14/2017 3:09 PM Dictated Date/Time: 03/14/2017 3:[address] HEAD WITHOUT CONTRAST (CT) CLINICAL HISTORY: Stroke COMPARISON STUDY: 03/05/2017 TECHNIQUE: Axial CT of the brain is performed from the vertex to the skull base. IV contrast was not administered for this examination. A dose lowering technique was utilized adhering to the principles of ALARA. CT DOSE: 729.78 mGycm FINDINGS: No intra or extra-axial mass lesions are visualized. There is no CT evidence of acute cortical infarction. There is no evidence of midline shift. There is no acute hemorrhage. No calvarial fractures are visualized. There are patchy white matter hypodensities likely on a small vessel basis. There is mild ventricular dilatation, likely secondary to volume loss There is no evidence of acute sinusitis IMPRESSION: No acute intracranial findings Electronically signed by: Aldo Borden M.D. EKG Second-degree AV block. Mobitz type I 37 bpm Arrhythmia was present on last EKG Impression Assessment and Plan 86-year-old male presented to the emergency department with an episode of unresponsiveness. There is questionable left-sided weakness because of the left facial droop. This is chronic in nature. The patient is now back to baseline. He was found to be markedly bradycardic in the emergency department. The ED physician did discuss the case with cardiology. His arrhythmia is not new. Unresponsiveness secondary to cardiac arrhythmia. BP stable -Admit to telemetry -Consult cardiology for possible pacemaker in the morning -NPO after midnight Hydralazine 10 mg IV q 6 hr PRN Dementia -continue aricept and galantamine -The patient will likely need a sitter overnight. The patient's says that he does not react well to Haldol. This should be avoided. DVT prophylaxis -Teds, SCDs -I will hold off on any chemical means as the patient may go for procedure in the morning. CODE STATUS -LEVEL I FULL CODE This chart was completed in part utilizing [employer] Speech Voice Recognition software. Attempts were made to minimize the grammatical errors, random word insertions, pronoun errors and incomplete sentences. Any formal questions or concerns about the content, text or information contained within the body of this dictation should be directly addressed to the provider for clarification. Attending Addendum: I have physically seen and examined this patient, have directed the physician assistants medical activities, and agree with the H&P as noted above with the following exceptions: NONE The patient is awake, disoriented, somewhat disheveled, very mild left facial droop, sitting upright in bed and in no acute distress. HEENT--PERRL, EOMI, mucous membranes and oropharynx dry. Neck--supple, no JVD or bruits, thyroid normal, trachea midline, no adenopathy. Heart--irregularly irregular and bradycardic, no murmurs, rubs or gallops. Lungs--clear bilaterally with good air movement, no respiratory distress, no accessory muscle use. Abdomen--normal bowel sounds and soft, nontender and nondistended, no hernias or masses, no organomegaly. Extremities--no cyanosis, clubbing or edema. There are good distal pulses b/l. Dermatologic--normal skin turgor, normal color, warm and dry, no abnormal lymph nodes, no rash. Neurologic--cranial nerves II through XII grossly intact, motor and sensory examination normal. Rheumatologic--normal range of motion, nontender, muscles and joints. Psychiatric--flat affect, non-focused Assessment and Plan: 1. Unresponsive episode with multiple potential etiologies including bradycardia, CVA, medication effect.The patient will be admitted to telemetry for serial cardiac enzymes, cardiac rhythm monitoring and a 2-D echocardiogram with Dopplers. Nothing by mouth after midnight for possible pacemaker placement. Consult cardiology for severe bradycardia. Hydralazine 10 mg IV every 6 hours when necessary systolic blood pressure is 160 Continue amlodipine 2.5 mg by mouth daily. Hold aspirin 81 mg until postprocedure. 2. Hyperlipidemia--continue atorvastatin 10 mg by mouth daily. 3. Dementia--continue Aricept and galantamine current doses. Patient will need a one-on-one observation while in hospital. He does of note, have a history of becoming agitated when he's in hospital and/ or away from home. Level of Care Telemetry Advanced Directives Existing Advance Directive: No Existing Living Will: No Existing Power of Foreclosure Field Inspector: No Resuscitation Status FULL RESUSCITATION VTE Prophylaxis VTE Risk Assessment Done? Y/N: Yes Risk Level: Low Given or contraindicated: T.E.D. Stockings, SCD's
[2017-03-14] MEDS ORDERED: ALUMINUM/MAGNESIUM/SIMETH (MAALOX MAX) 30 ML UDC PO PRN (16:30)
[2017-03-14] MEDS ORDERED: MAGNESIUM HYDROXIDE SUSP 30 ML UDC PO PRN (16:30)
[2017-03-14] MEDS ORDERED: ACETAMINOPHEN 325 MG TAB PO PRN (16:30)
[2017-03-14 19:21] VITALS: BP 188/93; PULSE 40; TEMP 36.5; O2SAT 95; Ht 182.9 cm; Wt 64.8 kg
[2017-03-14 20:00] VITALS: BP 171/78; PULSE 49; TEMP 36.6; O2SAT 95
[2017-03-14] MEDS: DONEPEZIL HCL 10 MG TAB PO SCH (20:05)
[2017-03-14] MEDS: HydrALAZINE HCL 20 MG/ML VIAL IV. PRN (20:13)
[2017-03-14 22:17] VITALS: BP 152/89; PULSE 53; O2SAT 95
[2017-03-14 23:00] VITALS: PULSE 57
[2017-03-14 23:01] VITALS: BP 157/83; PULSE 48
[2017-03-14 23:30] VITALS: PULSE 89
[2017-03-15] VITALS (16 sets, daily range): BP systolic 151–216; BP diastolic 71–110; PULSE 48–91; TEMP 36.4–37.1; O2SAT 93–97
[2017-03-15 05:32] LABS: BASO % 0.4 %; BASO ABS # 0.03 K/uL (0-0.2); COMPLETE YES; EOS % 2.4 %; HEMATOCRIT 48.4 % (42-52); IG% 0.3 %; LYMPH % 20.2 %; LYMPH ABS # 1.41 K/uL (1.2-3.4); MEAN CORPUSCULAR HEMOGLOBIN 29.1 pg (25-34); MEAN CORPUSCULAR HGB CONC 31.6 g/dl (32-36); MEAN PLATELET VOLUME 10.4 fL (7.4-10.4); MONO % 6.9 %; NEUT % 69.8 %; PLATELET COUNT 169 K/uL (130-400); RED BLOOD COUNT 5.26 M/uL (4.7-6.1); WHITE BLOOD COUNT 6.97 K/uL (4.8-10.8)
[2017-03-15 05:39] LABS: INR 1.1 (0.9-1.1); PROTHROMBIN TIME (PATIENT) 11.5 SECONDS (9.0-12.0)
[2017-03-15 06:13] LABS: BUN/CREATININE RATIO 13.3 (10-20); CALCIUM 8.2 mg/dl (8.5-10.1); CREATININE 0.84 mg/dl (0.60-1.40); POTASSIUM 3.2 mmol/L (3.5-5.1)
[2017-03-15] MEDS: SODIUM CHLOR 0.45% + 20MEQ KCL 1,000 ML IV SCH (06:41)
[2017-03-15] MEDS: POTASSIUM CHLR 10 MEQ / WTR 10 MEQ in PREMIXED WATER 100 ML IV SCH ×2 (06:48→07:59)
[2017-03-15] MEDS: GALANTAMINE HYDROBROMIDE 8 MG CAPER PO SCH (08:00)
[2017-03-15] MEDS: AMLODIPINE BESYLATE 5 MG TAB PO SCH (08:00)
[2017-03-15] MEDS: LACTOBACILLUS ACIDOPHILUS (FLORANEX) TAB PO SCH ×3 (08:00→15:34)
[2017-03-15] MEDS ORDERED: ATORVASTATIN 10 MG TAB PO SCH (09:00)
--- NOTE | 2017-03-15 09:56 | Progress Note ---
Subjective Date of Service: Mar 15, 2017. Subjective Pt evaluation today including: conversation w/ patient, physical exam, chart review, lab review, review of studies (Ct head, cxr), conversation w/ hr business partner consultant (cardiology), review of inpatient medication list Pain: none obvious PO Intake: npo Voiding: incontinence tele overnight with bradycardia, rates 20s to 40s, current rate 60s/70s type 1 mobitz only; no higher AV block patient pleasantly confused during my visit and can offer no meaningful history when asked specifically about shortness of breath, abd pain, chest pain - he denies these unable to obtain ROS otherwise Problem List Medical Problems: (1) Bradycardia Status: Acute (2) Contusion of multiple sites Status: Acute (3) Dementia Status: Acute (4) Elbow abrasion Status: Acute (5) Fall Status: Acute (6) Hypoxia Status: Acute (7) Pneumonia Status: Acute (8) Second degree atrioventricular block, Mobitz (type) I Status: Acute (9) Symptomatic bradycardia Status: Acute (10) Unresponsive episode Status: Acute Objective Vital Signs Date Time Temp Pulse Resp B/P (MAP) Pulse Ox O2 Delivery O2 Flow Rate FiO2 03/15/17 08:00 Room Air 03/15/17 07:57 36.4 50 16 184/90 (121) 94 Room Air 03/15/17 04:27 37.1 53 172/80 (110) 03/15/17 04:25 213/91 (131) 56 03/15/17 04:00 66 03/15/17 04:00 Room Air 03/15/17 03:00 57 03/15/17 02:00 64 03/15/17 01:00 48 03/15/17 00:12 52 163/83 (109) 03/15/17 00:12 163/83 (109) 52 03/15/17 00:02 188/82 (117) 51 03/15/17 00:02 188/82 (117) 03/15/17 00:00 36.9 91 03/15/17 00:00 91 03/14/17 23:59 Room Air 03/14/17 23:30 89 03/14/17 23:01 157/83 (107) 48 03/14/17 23:00 57 03/14/17 22:17 53 16 152/89 (110) 95 03/14/17 20:00 Room Air 03/14/17 20:00 36.6 49 18 171/78 (109) 95 Room Air 03/14/17 19:21 36.5 40 18 188/93 95 Room Air 03/14/17 19:12 48 18 166/89 97 03/14/17 16:30 44 18 185/87 98 Room Air 03/14/17 14:28 51 20 99 03/14/17 14:23 49 18 96 03/14/17 14:18 43 16 99 03/14/17 14:13 34 17 98 03/14/17 14:08 45 17 99 03/14/17 14:03 51 20 95 03/14/17 13:58 46 15 03/14/17 13:57 38 03/14/17 13:56 94 Room Air 03/14/17 13:49 44 16 178/94 92 Room Air 03/14/17 13:48 178/94 Physical Exam General Appearance: no apparent distress ENT: pharynx normal Neck: no JVD, no carotid bruits Respiratory/Chest: lungs clear, no respiratory distress, no accessory muscle use Cardiovascular: no gallop, no murmur, + bradycardia Abdomen: normal bowel sounds, non tender, soft, no organomegaly Extremities: no pedal edema Neurologic/Psychiatric: alert, + disoriented, + pertinent finding (slight left- sided facial droop; strength x 4 extremities 5/5; DTRs upper and lower extremities 2+) Laboratory Results Last 24 Hours Test 03/14/17 13:54 03/15/17 05:02 03/15/17 08:58 White Blood Count 6.15 K/uL 6.97 K/uL Red Blood Count 4.71 M/uL 5.26 M/uL Hemoglobin 14.6 g/dL 15.3 g/dL Hematocrit 43.4 % 48.4 % Mean Corpuscular Volume 92.1 fL 92.0 fL Mean Corpuscular Hemoglobin 31.0 pg 29.1 pg Mean Corpuscular Hemoglobin Concent 33.6 g/dl 31.6 g/dl Platelet Count 154 K/uL 169 K/uL Mean Platelet Volume 9.7 fL 10.4 fL Neutrophils (%) (Auto) 65.7 % 69.8 % Lymphocytes (%) (Auto) 24.4 % 20.2 % Monocytes (%) (Auto) 6.5 % 6.9 % Eosinophils (%) (Auto) 2.9 % 2.4 % Basophils (%) (Auto) 0.2 % 0.4 % Neutrophils # (Auto) 4.04 K/uL 4.86 K/uL Lymphocytes # (Auto) 1.50 K/uL 1.41 K/uL Monocytes # (Auto) 0.40 K/uL 0.48 K/uL Eosinophils # (Auto) 0.18 K/uL 0.17 K/uL Basophils # (Auto) 0.01 K/uL 0.03 K/uL RDW Standard Deviation 44.8 fL 44.2 fL RDW Coefficient of Variation 13.2 % 13.2 % Immature Granulocyte % (Auto) 0.3 % 0.3 % Immature Granulocyte # (Auto) 0.02 K/uL 0.02 K/uL Prothrombin Time 11.0 SECONDS 11.5 SECONDS Prothromb Time International Ratio 1.0 1.1 Activated Partial Thromboplast Time 33.0 SECONDS Partial Thromboplastin Ratio 1.3 Sodium Level 142 mmol/L 141 mmol/L Potassium Level 4.1 mmol/L 3.2 mmol/L Chloride Level 109 mmol/L 109 mmol/L Carbon Dioxide Level 30 mmol/L 28 mmol/L Anion Gap 3.0 mmol/L 4.0 mmol/L Blood Urea Nitrogen 16 mg/dl 11 mg/dl Creatinine 1.10 mg/dl 0.84 mg/dl Est Creatinine Clear Calc Drug Dose 51.9 ml/min 67.8 ml/min Estimated GFR () 69.6 91.2 Estimated GFR (Non- 60.0 78.7 BUN/Creatinine Ratio 14.7 13.3 Random Glucose 94 mg/dl 86 mg/dl Calcium Level 8.9 mg/dl 8.2 mg/dl Total Creatine Kinase 58 U/L Creatine Kinase MB 1.1 ng/ml Creatine Kinase MB Ratio 1.9 Troponin I < 0.015 ng/ml Assessment and Plan 86yo male: 1. TIA vs stroke vs syncope - patient appears neurologically intact today. less concern of stroke. could have had TIA but will be difficult to prove such. syncope possible but less likely. seen by cardiology - bradycardia felt not to be the cause of his presenting symptoms. likely unrelated as this issue is chronic. will complete TIA work-up with carotid duplex, echo, lipids, speech/PT/OT evals. I seriously doubt he could tolerate MRI and thus will defer. 2. dementia - appears advanced. Cont aricept and galantamine. Does wish for placement? will d/w his . b12, TSH, etc in past have been normal. 3. known AAA - no Rx at this time. 4. HTN - continue amlodipine, titrate as needed. 5. DVT proph - add lovenox. 6. FEN - cont fluids until cleared by speech; replace K; check mag; repeat lytes AM. 7. 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 Appreciate cardiology consult. Echo ordered. Continued [facility] stay due to: multiple IV medications needed Discharge planning: uncertain
--- NOTE | 2017-03-15 10:41 | DIAGNOSTIC IMAGING REPORT ---
ULTRASOUND OF THE CAROTID ARTERIES CLINICAL HISTORY: Transient ischemic attack. COMPARISON STUDY: No priors. TECHNIQUE: Real-time, grayscale, and color Doppler sonography of the carotid arteries is performed. Images are reviewed in the transverse and longitudinal planes. FINDINGS: Blood pressures were not assessed. The carotid arteries are patent bilaterally and demonstrate antegrade flow. There is moderate echogenic shadowing atherosclerotic plaque seen bilaterally. Normal doppler arterial waveforms are seen throughout. Velocity measurements are listed below. Common carotid peak systolic velocity (cm/sec): RIGHT: 62 LEFT: 78 ICA proximal peak systolic velocity (cm/sec): RIGHT: 59 LEFT: 62 ICA mid peak systolic velocity (cm/sec): RIGHT: 48 LEFT: 61 ICA distal peak systolic velocity (cm/sec): RIGHT: 83 LEFT: 53 ICA/CC peak systolic ratio: RIGHT: 1.3 LEFT: 0.8 Antegrade flow was shown in the vertebral arteries. The external carotid arteries are patent. IMPRESSION: 1. Atherosclerotic plaque with no sonographic evidence of hemodynamically significant stenosis in the right or left carotid arterial system. 2. Antegrade flow is shown in the vertebral arteries. Electronically signed by: Luis Enrique Lombardi M.D. 03/15/2017 10:40 AM Dictated Date/Time: 03/15/2017 10:37 AM
[2017-03-15] MEDS ORDERED: ENOXAPARIN 40 MG/0.4 ML SYR SQ ONE (11:00)
--- NOTE | 2017-03-15 11:41 | Cardiology Consultation ---
Cardiology Consultation Date of Consultation: Mar 15, 2017. Requesting Physician: Gladys Reason for Consultation: Bradycardia History of Present Illness The patient is an 86-year-old gentleman with a history of severe dementia and known bradycardia who was found unresponsive by his yesterday. Today's history was obtained primarily from the medical record, conversations with the nursing staff and the patient's . It seems that he was taking a nap in the afternoon when the attempted to wake him. Patient was not responsive at that time and she could not wake him up. She states that she he was breathing normally and had not lost postural tone, but due to his decreased level of consciousness she contacted EMS. Upon arrival of the EMS record suggests that he was also unresponsive. His vital signs were assessed and they continued efforts to wake him. Eventually he was more alert, but described as lethargic. There was some question of focal neurologic abnormalities andthe patient was [facility]. Upon arrival the patient was noted to be bradycardic. He was not felt to have focal neurologic deficits. He became somewhat combative and agitated shortly after admission. The states that in general he is sedentary. He is able to ambulate around her residence but performs little activity. He spends most of the day in a chair. She prepares his meals and feet seem pureed food as he has some difficulty with swallowing. He has had some falls in the past but these appear to be rare. He has had some minor skin tears and injuries associated with some minor trauma. The states that he has had progression of his dementia, he has become less active and she has more difficulty engaging him in any activity. He has required more care lately and she has been seeking some help at home. I attempted interview with the patient, but he has no insight into his current condition. He was oriented only to himself and not his place, time or situation. He did not answer questions appropriately. He was not cooperative with the physical examination. Past Medical/Surgical History Progressive dementia Abdominal aortic aneurysm, 6.3 centimeters Glaucoma Hiatal hernia Hypercholesterolemia Hypertension Lower esophageal ring Prostate cancer Urinary incontinence History of aspiration pneumonia Surgical history Appendectomy Inguinal hernia repair Prostatectomy Tonsillectomy Family History Noncontributory due advanced age Social History Smoking Status: Unknown if Ever Smoked History of Alcohol Use: Yes (1 glass of wine daily) Currently cared for at home by his Review of Systems Review of systems was not obtainable as the patient has severe dementia Allergies Coded Allergies: Haloperidol (Verified Allergy, Intermediate, ERYTHEMA MULTIFORME AT INJECTION SITES, 03/14/17) erythema multiforme at injection sites Medications Current Inpatient Medications Medications (Trade) Dose Ordered Sig/Leesa Route Start Time Stop Time Status Last Admin Dose Admin Acetaminophen (Tylenol Tab) 650 mg Q4H PRN PO 03/14/17 16:30 04/13/17 16:29 Al Hydrox/Mg Hydrox/Simethicone (Maalox Max Susp) 15 ml Q4H PRN PO 03/14/17 16:30 04/13/17 16:29 Magnesium Hydroxide (Milk Of Magnesia Susp) 30 ml Q12H PRN PO 03/14/17 16:30 04/13/17 16:29 Donepezil HCl (Aricept Tab) 10 mg HS PO 03/14/17 21:00 04/13/17 20:59 03/14/17 20:05 10 MG Amlodipine Besylate (Norvasc Tab) 2.5 mg DAILY PO 03/15/17 09:00 04/14/17 08:59 03/15/17 08:00 2.5 MG Atorvastatin Calcium (Lipitor Tab) 10 mg DAILY PO 03/15/17 09:00 04/14/17 08:59 03/15/17 08:00 10 MG Galantamine Hydrobromide (Razadyne Cap) 24 mg QAM PO 03/15/17 09:00 04/14/17 08:59 03/15/17 08:00 24 MG Hydralazine HCl (HydrALAZINE INJ) 10 mg Q6H PRN IV. 03/14/17 16:30 04/13/17 16:29 03/14/17 20:13 10 MG Lactobacillus Acidophilus (Floranex Tab) 4 tab TIDM PO 03/15/17 07:15 04/14/17 07:14 03/15/17 08:00 4 TAB Potassium Chloride/Sodium Chloride 1,000 ml @ 50 mls/hr Q20H IV 03/15/17 07:00 04/14/17 06:29 03/15/17 06:41 50 MLS/HR Enoxaparin Sodium (Lovenox Inj) 40 mg QAM SQ 03/16/17 09:00 04/15/17 08:59 Physical Exam Vital Signs Past 12 Hours Date Time Temp Pulse Resp B/P (MAP) Pulse Ox O2 Delivery O2 Flow Rate FiO2 03/15/17 08:00 Room Air 03/15/17 07:57 36.4 50 16 184/90 (121) 94 Room Air 03/15/17 04:27 37.1 53 172/80 (110) 03/15/17 04:25 213/91 (131) 56 03/15/17 04:00 66 03/15/17 04:00 Room Air 03/15/17 03:00 57 03/15/17 02:00 64 03/15/17 01:00 48 03/15/17 00:12 52 163/83 (109) 03/15/17 00:12 163/83 (109) 52 03/15/17 00:02 188/82 (117) 51 03/15/17 00:02 188/82 (117) 03/15/17 00:00 36.9 91 03/15/17 00:00 91 03/14/17 23:59 Room Air 03/14/17 23:30 89 The patient is alert but only oriented to person. Mood and affect appeared normal. He did not answer questions appropriately. He was not cooperative with the exam HEENT: Pupils are equal and reactive to light and accommodation. Extraocular movements are intact. The sclerae are anicteric. Neck: Patient's neck is supple. He has palpable carotid pulses bilaterally without bruits on auscultation. There is no evidence of jugular venous distention. The thyroid is not enlarged. Lungs: Clear to auscultation bilaterally. He has good air movement without use of accessory muscles. No rales wheezes or rhonchi. Cardiac: Heart demonstrates a regular rate and rhythm. Normal S1 and S2. No murmurs on examination. Pulses: The patient has palpable radial pulses bilaterally that are equal in intensity Extremities: There was no evidence of hypoperfusion. There is no cyanosis or clubbing. There is no edema. Skin: I did not appreciate any rashes on examination today. Neuro: The exam was nonfocal but the patient did have difficulty participating in an evaluation Data Laboratory Results: Last 24 Hours Test 03/14/17 13:54 03/15/17 05:02 03/15/17 09:54 White Blood Count 6.15 K/uL 6.97 K/uL Red Blood Count 4.71 M/uL 5.26 M/uL Hemoglobin 14.6 g/dL 15.3 g/dL Hematocrit 43.4 % 48.4 % Mean Corpuscular Volume 92.1 fL 92.0 fL Mean Corpuscular Hemoglobin 31.0 pg 29.1 pg Mean Corpuscular Hemoglobin Concent 33.6 g/dl 31.6 g/dl Platelet Count 154 K/uL 169 K/uL Mean Platelet Volume 9.7 fL 10.4 fL Neutrophils (%) (Auto) 65.7 % 69.8 % Lymphocytes (%) (Auto) 24.4 % 20.2 % Monocytes (%) (Auto) 6.5 % 6.9 % Eosinophils (%) (Auto) 2.9 % 2.4 % Basophils (%) (Auto) 0.2 % 0.4 % Neutrophils # (Auto) 4.04 K/uL 4.86 K/uL Lymphocytes # (Auto) 1.50 K/uL 1.41 K/uL Monocytes # (Auto) 0.40 K/uL 0.48 K/uL Eosinophils # (Auto) 0.18 K/uL 0.17 K/uL Basophils # (Auto) 0.01 K/uL 0.03 K/uL RDW Standard Deviation 44.8 fL 44.2 fL RDW Coefficient of Variation 13.2 % 13.2 % Immature Granulocyte % (Auto) 0.3 % 0.3 % Immature Granulocyte # (Auto) 0.02 K/uL 0.02 K/uL Prothrombin Time 11.0 SECONDS 11.5 SECONDS Prothromb Time International Ratio 1.0 1.1 Activated Partial Thromboplast Time 33.0 SECONDS Partial Thromboplastin Ratio 1.3 Sodium Level 142 mmol/L 141 mmol/L Potassium Level 4.1 mmol/L 3.2 mmol/L Chloride Level 109 mmol/L 109 mmol/L Carbon Dioxide Level 30 mmol/L 28 mmol/L Anion Gap 3.0 mmol/L 4.0 mmol/L Blood Urea Nitrogen 16 mg/dl 11 mg/dl Creatinine 1.10 mg/dl 0.84 mg/dl Est Creatinine Clear Calc Drug Dose 51.9 ml/min 67.8 ml/min Estimated GFR () 69.6 91.2 Estimated GFR (Non- 60.0 78.7 BUN/Creatinine Ratio 14.7 13.3 Random Glucose 94 mg/dl 86 mg/dl Calcium Level 8.9 mg/dl 8.2 mg/dl Total Creatine Kinase 58 U/L Creatine Kinase MB 1.1 ng/ml Creatine Kinase MB Ratio 1.9 Troponin I < 0.015 ng/ml Magnesium Level 2.4 mg/dl Imaging: Chest x-ray was unremarkable. Head CT did not demonstrate any acute findings. Carotid duplex did not reveal significant obstructive disease EKG: Sinus rhythm with Mobitz 1 conduction. Interventricular conduction delay. Bradycardia Telemetry reviewed: He has evidence of significant AV isabel disease with periods of 2-1 conduction and Mobitz 1 conduction. Overall ventricular rates vary considerably but are as low as 27 beats per minute. Assessment & Plan Unresponsiveness: This is of unclear etiology. Initially this was felt to be due to bradycardia, the review of the patient's records suggest that his heart rate at the time of presentation was no different than what has been previously. The EMS record also suggested that the time of his initial evaluation he was hemodynamically stable despite being unresponsive. This would speak against bradycardia as the cause of his unresponsiveness. Patient has had similar heart rates and vital signs here in the hospital with normal level of consciousness. Bradycardia: It is unclear whether the patient's bradycardia has changed significantly from a prior evaluation 1 year ago. He does have periods of 2-1 conduction and quite slow ventricular rates at times. A correlation between these heart rates and symptoms is not established. For most patients heart rates in the 30s while awake would seem reasonable indication for permanent pacing. However, the patient's functional status is compromised and he has significant cognitive dysfunction. Our ability to affect his overall level of functioning or quality of life with a pacemaker is low. I had an extensive discussion with the patient's today regarding the wishes of the patient in this situation and she has not yet come to a conclusion regarding any procedures. Once again, despite an indication for pacing I am not confident that we can significantly affect his longevity or quality of life with a permanent pacemaker. Due to his severe cognitive dysfunction the patient is not able to participate in decision making. He also cannot provide any help with respect to symptoms. I had the opportunity to discuss the patient's case with his at the bedside today. She had contacted her sons as well as his former ribbon inker outside of [place]. She relates some of the information I discussed with her earlier today and amongst themselves they have decided not to pursue a pacemaker at this time. Once again we had a discussion regarding an improvement in the patient's quality of life. At this point it is unclear whether he suffers any symptoms from the documented bradycardia. If we cannot confidently say that we can improve his quality of life with insertion of the pacemaker she has elected to defer implantation at this time.
--- NOTE | 2017-03-15 12:41 | ECHOCARDIOGRAM REPORT ---
*NOTICE TO RECEIVING CONSTITUTION PARTY AGENCY This information is strictly Confidential and protected under [place] law. [place] law prohibits you from making any further disclosure of this information unless further disclosure is expressly permitted by the written consent of the person to whom it pertains or is authorized by law. A general authorization for the release of medical or other information is not sufficient for this purpose. Hospital accepts no responsibility if the information is made available to any other person, INCLUDING THE PATIENT. Interpretation Summary * Name: REYNA QUIGLEY Study Date: 03/15/2017 11:02 AM BP: 184/90 mmHg * Patient Location: C.2T\S\E217\S\1 HR: 50 * : 1930 (M/d/yyyy) Gender: Male Height: 72 in * Age: 86 yrs Ethnicity: CA Weight: 170 lb * Ordering Physician: Kofi Graham * Performed By: Viki El * * Reason For Study: CEREBRAL ISCHEMIA/ EMBOLUS * BSA: 2.0 m2 * -- Conclusions -- * Limited views were obtained. * There were technical limitations due to patient'sinability to cooperate * There is mild concentric left ventricular hypertrophy. * Left ventricular systolic function is normal. * Compared to a study from 2016, and taking into account the difference in technique, there is no significant change Procedure Details * The study was technically limited. * The study was technically difficult. * Limited views were obtained. * There were technical limitations due to patient'sinability to cooperate Left Ventricle * The left ventricle is grossly normal size. * There is mild concentric left ventricular hypertrophy. * Ejection Fraction = 60-65%. * Left ventricular systolic function is normal. Right Ventricle * The right ventricle is not well visualized. Atria * The left atrial size is normal. * Right atrial size is normal. Mitral Valve * The mitral valve is grossly normal. * Significant mitral regurgitation is absent. Tricuspid Valve * The tricuspid valve is not well visualized. Aortic Valve * Aortic valve sclerosis mild, without significant aortic valvular stenosis. * No hemodynamically significant valvular aortic stenosis. * There is no significant aortic regurgitation. Pericardium/Pleural * There is no pericardial effusion. MMode 2D Measurements and Calculations IVSd 1.5 cm IVSs 1.8 cm LVIDd 4.8 cm LVIDs 3.2 cm LVPWd 1.2 cm LVPWs 1.9 cm IVS/LVPW 1.3 FS 33.3 % EDV(Teich) 108.1 ml ESV(Teich) 41.3 ml EF(Teich) 61.8 % EDV(cubed) 111.3 ml ESV(cubed) 33.1 ml EF(cubed) 70.3 % % IVS thick 21.1 % % LVPW thick 57.0 % LV mass(C)d 262.0 grams LV mass(C)dI 131.8 grams/m\S\2 LV mass(C)s 249.1 grams LV mass(C)sI 125.3 grams/m\S\2 CO(Teich) 4.4 l/min CI(Teich) 2.2 l/min/m\S\2 SV(Teich) 66.8 ml SI(Teich) 33.6 ml/m\S\2 CO(cubed) 5.2 l/min CI(cubed) 2.6 l/min/m\S\2 SV(cubed) 78.2 ml SI(cubed) 39.3 ml/m\S\2 ACS 1.3 cm LA dimension 2.9 cm asc Aorta Diam 3.6 cm LVOT diam 2.1 cm LVOT area 3.5 cm\S\2 LVAd ap4 28.9 cm\S\2 LVLd ap4 8.0 cm EDV(MOD-sp4) 85.4 ml LVAs ap4 17.0 cm\S\2 LVLs ap4 7.3 cm ESV(MOD-sp4) 32.9 ml EF(MOD-sp4) 61.5 % LVAd ap2 32.2 cm\S\2 LVLd ap2 8.4 cm EDV(MOD-sp2) 102.0 ml LVAs ap2 18.0 cm\S\2 LVLs ap2 7.0 cm ESV(MOD-sp2) 37.9 ml EF(MOD-sp2) 62.8 % CO(MOD-sp4) 3.5 l/min CI(MOD-sp4) 1.7 l/min/m\S\2 SV(MOD-sp4) 52.5 ml SI(MOD-sp4) 26.4 ml/m\S\2 CO(MOD-sp2) 4.2 l/min CI(MOD-sp2) 2.1 l/min/m\S\2 SV(MOD-sp2) 64.1 ml SI(MOD-sp2) 32.2 ml/m\S\2 Doppler Measurements and Calculations MV E max radha 41.2 cm/sec MV A max radha 93.6 cm/sec MV E/A 0.44 MV dec time 0.14 sec Ao V2 max 121.5 cm/sec Ao max PG 5.9 mmHg Ao max PG (full) 1.3 mmHg DAVID(V,A) 3.1 cm\S\2 DAVID(V,D) 3.1 cm\S\2 LV V1 max PG 4.6 mmHg LV V1 max 107.2 cm/sec PA V2 max 90.7 cm/sec PA max PG 3.3 mmHg PI end-d radha 119.4 cm/sec
[2017-03-15] MEDS: HydrALAZINE HCL 20 MG/ML VIAL IV. PRN ×2 (15:34→20:20)
[2017-03-15] MEDS: DONEPEZIL HCL 10 MG TAB PO SCH (21:19)
[2017-03-16] VITALS (8 sets, daily range): BP systolic 116–173; BP diastolic 60–89; PULSE 54–68; TEMP 36.1–37; O2SAT 94–95
[2017-03-16] MEDS: SODIUM CHLOR 0.45% + 20MEQ KCL 1,000 ML IV SCH (06:15)
[2017-03-16 07:01] LABS: CALCIUM 8.7 mg/dl (8.5-10.1); CREATININE 0.91 mg/dl (0.60-1.40); POTASSIUM 3.9 mmol/L (3.5-5.1)
[2017-03-16] MEDS: LACTOBACILLUS ACIDOPHILUS (FLORANEX) TAB PO SCH ×3 (08:31→16:45)
[2017-03-16] MEDS: AMLODIPINE BESYLATE 5 MG TAB PO SCH (08:34)
[2017-03-16] MEDS: ENOXAPARIN 40 MG/0.4 ML SYR SQ SCH (08:35)
[2017-03-16] MEDS: GALANTAMINE HYDROBROMIDE 8 MG CAPER PO SCH (08:35)
[2017-03-16] MEDS: ATORVASTATIN 40 MG TAB PO SCH (09:27)
--- NOTE | 2017-03-16 09:50 | Cardiology Follow-Up ---
Subjective Date of Service: Mar 16, 2017. Pt evaluation today including: chart review, lab review, review of studies History of Present Illness The patient was somewhat agitated over the course of the evening. He otherwise continues to be alert and interactive, but does not respond appropriately to questions. He can provide no reliable history. Social History Smoking Status: Unknown if Ever Smoked History of Alcohol Use: Yes (1 glass of wine daily) Review of Systems Review of systems was not obtainable as the patient has severe dementia Objective Vital Signs Past 12 Hours Date Time Temp Pulse Resp B/P (MAP) Pulse Ox O2 Delivery O2 Flow Rate FiO2 03/16/17 07:30 36.9 57 20 154/61 (92) 95 Room Air 03/16/17 04:00 Room Air 03/16/17 03:13 36.6 59 20 116/60 (78) 95 Room Air 03/16/17 00:00 Room Air 03/15/17 23:24 36.9 59 18 151/83 (105) 96 Room Air Last Recorded Weight-Kilograms: 78.100 Physical Exam The patient is alert but only oriented to person. Mood and affect appeared normal. Data Laboratory Results: Last 24 Hours Test 03/15/17 09:54 03/16/17 05:52 Magnesium Level 2.4 mg/dl Sodium Level 141 mmol/L Potassium Level 3.9 mmol/L Chloride Level 107 mmol/L Carbon Dioxide Level 26 mmol/L Anion Gap 8.0 mmol/L Blood Urea Nitrogen 12 mg/dl Creatinine 0.91 mg/dl Est Creatinine Clear Calc Drug Dose 62.8 ml/min Estimated GFR () 87.5 Estimated GFR (Non- 75.5 BUN/Creatinine Ratio 13.0 Random Glucose 110 mg/dl Calcium Level 8.7 mg/dl Triglycerides Level 83 mg/dl Cholesterol Level 197 mg/dl HDL Cholesterol 49 mg/dl LDL Cholesterol, Calculated 131 mg/dl VLDL Cholesterol, Calculated 17 mg/dl Cholesterol/HDL Ratio 4.0 Imaging: Carotid ultrasound not reveal any significant disease Telemetry reviewed: Allison Velez conduction. Assessment and Plan Bradycardia: Patient continues to have periods of bradycardia. These are the most common when he is sleeping. He has not had much ambulation or activity since his hospitalization. There was some concern for an element of third- degree heart block over the course of the evening, but review of the strips suggest that this is more likely AV isabel and related to premature atrial contractions rather than true complete heart block. In any event, the patient does have significant conduction disease and other circumstances may be a good candidate for permanent pacing. However, given his other comorbidities it is unclear whether he would have any significant change in his quality of life with insertion of a pacemaker. After an extensive discussion with the patient' s who speaks for the family, we have elected not to pursue a pacemaker in the absence of more severe symptoms or marked change in his condition. At this point Cardiology will sign off. Please feel free to contact our service if additional issues arise or further information is required.
[2017-03-17 03:44] VITALS: BP 157/69; PULSE 54; TEMP 36.7; O2SAT 95
--- NOTE | 2017-03-17 06:56 | Progress Note ---
Subjective Date of Service: late entry for visit Mar 16, 2017. Subjective Pt evaluation today including: conversation w/ family (, at bedside), physical exam, chart review, lab review Pain: nothing obvious per staff PO Intake: good Voiding: incontinence tele - intermittent type 1 Mobitz pattern seen, otherwise sinus cassie or NSR patient in deep sleep during my visit I did not wake him as ROS is largely unobtainable due to severe dementia lengthy discussion held with - she wishes for him to go to SNF, dementia unit preferably Problem List Medical Problems: (1) Bradycardia Status: Acute (2) Contusion of multiple sites Status: Acute (3) Dementia Status: Acute (4) Elbow abrasion Status: Acute (5) Fall Status: Acute (6) Hypoxia Status: Acute (7) Pneumonia Status: Acute (8) Second degree atrioventricular block, Mobitz (type) I Status: Acute (9) Symptomatic bradycardia Status: Acute (10) Unresponsive episode Status: Acute Objective Vital Signs Date Time Temp Pulse Resp B/P (MAP) Pulse Ox O2 Delivery O2 Flow Rate FiO2 03/17/17 04:00 Room Air 03/17/17 03:44 36.7 54 19 157/69 (98) 95 Room Air 03/16/17 23:59 Room Air 03/16/17 23:21 36.8 60 19 147/76 (99) 94 Room Air 03/16/17 20:00 Room Air 03/16/17 18:50 36.1 68 18 139/78 (98) 94 Room Air 03/16/17 16:23 36.2 56 18 173/85 (114) 95 Room Air 03/16/17 16:00 Room Air 03/16/17 12:00 95 Room Air 03/16/17 11:10 37.0 54 22 157/89 (111) 94 Room Air 03/16/17 08:00 95 Room Air 03/16/17 07:30 36.9 57 20 154/61 (92) 95 Room Air Physical Exam General Appearance: no apparent distress ENT: pharynx normal Neck: no JVD Respiratory/Chest: lungs clear, no respiratory distress, no accessory muscle use Cardiovascular: no gallop, no murmur, + bradycardia Abdomen: normal bowel sounds, soft, no organomegaly Extremities: no pedal edema Neurologic/Psychiatric: + pertinent finding (sleeping) Assessment and Plan 86yo male: 1. TIA vs stroke vs syncope - work-up this admission negative. carotid duplex normal. echo w/o source of embolus. his neuro exam has been stable. CT head at admission negative. MRI deferred due to suspected difficulties with him laying in the machine. if this was truly a TIA in the setting of chronic aspirin use then he should be switched to plavix for secondary prevention. will do so in AM. syncope possible but less likely. seen by cardiology - bradycardia felt not to be the cause of his presenting symptoms. likely unrelated as this issue is chronic. increase lipitor to 40mg daily since LDL is >100. 2. dementia with behavioral disturbance - appears advanced. b12, TSH, etc in past have been normal. reports galatamine and aricept were d/c in the last few months. if behaviors continue in the hospital then add atypical antipsychotic in lowest dose. 3. known AAA - no Rx at this time. 4. HTN - continue amlodipine, titrate as needed. 5. DVT proph - lovenox. 6. FEN - stop fluids, lytes stable today. 7. 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 Appreciate cardiology consult. Echo normal. spoke with CONSTANZA Ramos [facility] is 's first choice insurance auth pending Discharge planning: intermediate facility
[2017-03-17 07:06] VITALS: BP 170/74; PULSE 55; TEMP 36.7; O2SAT 95
[2017-03-17] MEDS: LACTOBACILLUS ACIDOPHILUS (FLORANEX) TAB PO SCH ×3 (09:18→16:45)
[2017-03-17] MEDS: ENOXAPARIN 40 MG/0.4 ML SYR SQ SCH (09:19)
[2017-03-17] MEDS: ATORVASTATIN 40 MG TAB PO SCH (09:19)
[2017-03-17] MEDS: CLOPIDOGREL BISULFATE 75 MG TAB PO SCH (09:19)
[2017-03-17] MEDS: AMLODIPINE BESYLATE 5 MG TAB PO SCH (09:19)
[2017-03-17 11:03] VITALS: BP 168/74; PULSE 56; TEMP 36.8; O2SAT 94
[2017-03-17 15:23] VITALS: BP 139/86; PULSE 55; TEMP 36; O2SAT 96
[2017-03-17 18:59] VITALS: BP 158/83; PULSE 58; TEMP 36.4; O2SAT 95
[2017-03-18 02:10] VITALS: BP 152/81; PULSE 53; TEMP 36.6; O2SAT 93
[2017-03-18 06:58] VITALS: BP 150/67; PULSE 47; TEMP 36.6; O2SAT 95
[2017-03-18 07:48] LABS: HEMATOCRIT 47.1 % (42-52); MEAN CELL VOLUME 91.3 fL (80-100); MEAN CORPUSCULAR HEMOGLOBIN 31.4 pg (25-34); MEAN CORPUSCULAR HGB CONC 34.4 g/dl (32-36); PLATELET COUNT 157 K/uL (130-400); RED BLOOD COUNT 5.16 M/uL (4.7-6.1); WHITE BLOOD COUNT 7.71 K/uL (4.8-10.8)
--- NOTE | 2017-03-18 08:13 | Progress Note ---
Subjective Date of Service: late entry for visit Mar 17, 2017. Subjective Pt evaluation today including: conversation w/ patient, conversation w/ family ( at bedside), physical exam, chart review, lab review, conversation w/ consultant technology (cardiology - Dr. Ortega), review of inpatient medication list Pain: nothing obvious PO Intake: normal Voiding: incontinence staff report occasional agitation but otherwise pleasantly confused tele overnight with episodes of Mobitz type 2 AV block type 1 Mobitz as well no obvious complete heart block no apparent symptoms from the block, however unable to obtain any meaningful ROS due to dementia Problem List Medical Problems: (1) Bradycardia Status: Acute (2) Contusion of multiple sites Status: Acute (3) Dementia Status: Acute (4) Elbow abrasion Status: Acute (5) Fall Status: Acute (6) Hypoxia Status: Acute (7) Pneumonia Status: Acute (8) Second degree atrioventricular block, Mobitz (type) I Status: Acute (9) Symptomatic bradycardia Status: Acute (10) Unresponsive episode Status: Acute Objective Vital Signs Date Time Temp Pulse Resp B/P (MAP) Pulse Ox O2 Delivery O2 Flow Rate FiO2 03/18/17 06:58 36.6 47 20 150/67 (94) 95 Room Air 03/18/17 04:00 Room Air 03/18/17 02:10 36.6 53 18 152/81 (104) 93 Room Air 03/17/17 23:59 Room Air 03/17/17 20:00 Room Air 03/17/17 18:59 36.4 58 20 158/83 (108) 95 Room Air 03/17/17 16:00 Room Air 03/17/17 15:23 36.0 55 18 139/86 (103) 96 Room Air 03/17/17 12:00 Room Air 03/17/17 11:03 36.8 56 20 168/74 (105) 94 Room Air Physical Exam General Appearance: no apparent distress ENT: pharynx normal Neck: no JVD Respiratory/Chest: lungs clear, no respiratory distress, no accessory muscle use Cardiovascular: + pertinent finding (irregular, bradycardia, no murmur) Abdomen: normal bowel sounds, non tender, soft, no organomegaly Extremities: no pedal edema Neurologic/Psychiatric: no motor/sensory deficits, alert, + disoriented Laboratory Results Last 24 Hours Test 03/18/17 07:25 White Blood Count 7.71 K/uL Red Blood Count 5.16 M/uL Hemoglobin 16.2 g/dL Hematocrit 47.1 % Mean Corpuscular Volume 91.3 fL Mean Corpuscular Hemoglobin 31.4 pg Mean Corpuscular Hemoglobin Concent 34.4 g/dl RDW Standard Deviation 44.6 fL RDW Coefficient of Variation 13.3 % Platelet Count 157 K/uL Mean Platelet Volume 10.0 fL Creatinine 1.00 mg/dl Est Creatinine Clear Calc Drug Dose 56.2 ml/min Estimated GFR () 78.1 Estimated GFR (Non- 67.4 Assessment and Plan 86yo male: 1. TIA vs stroke vs syncope - work-up this admission negative except for mobitz 1 and mobitz 2 AV block on monitor. it is unclear if this caused his symptoms prior to admission. carotid duplex normal. echo w/o source of embolus. his neuro exam has been stable. CT head at admission negative. MRI deferred due to suspected difficulties with him laying in the machine. if this was truly a TIA in the setting of chronic aspirin use then he should be switched to plavix for secondary prevention. changed to plavix 03/17/17. lipitor increased to 40mg daily. 2. dementia with behavioral disturbance - dementia appears advanced. b12, TSH, etc in past have been normal. reports galatamine and aricept were d/c in the last few months. if behaviors continue in the hospital then add atypical antipsychotic in lowest dose. 3. known AAA - no Rx at this time. 4. HTN - continue amlodipine, titrate as needed. 5. DVT proph - lovenox. 6. FEN - lytes stable, eating fine. 7. 2nd degree Mobitz Type 1 AV block - now with possible Mobitz Type [address] Ortega who will see in am. I spoke with pt's - although pacer likely indicated given the Type 2 Mobitz she seems hesitant to proceed with pacer insertion. Dr. Ortega to speak with her tomorrow AM. continue to observe on tele dispo - [facility] Continued [facility] stay due to: other (?pacemaker?) Discharge planning: residential facility
[2017-03-18] MEDS: ATORVASTATIN 40 MG TAB PO SCH (08:21)
[2017-03-18] MEDS: LACTOBACILLUS ACIDOPHILUS (FLORANEX) TAB PO SCH ×3 (08:21→16:34)
[2017-03-18] MEDS: AMLODIPINE BESYLATE 5 MG TAB PO SCH (08:22)
[2017-03-18] MEDS: ENOXAPARIN 40 MG/0.4 ML SYR SQ SCH (08:22)
[2017-03-18] MEDS: CLOPIDOGREL BISULFATE 75 MG TAB PO SCH (08:22)
[2017-03-18 11:04] VITALS: BP 135/69; PULSE 52; TEMP 36.5; O2SAT 94
--- NOTE | 2017-03-18 11:27 | Cardiology Follow-Up ---
Subjective Date of Service: Mar 18, 2017. Pt evaluation today including: conversation w/ patient, conversation w/ family , physical exam, lab review, review of studies, review of inpatient medication list, conversation w/ attending History of Present Illness I was asked to review the rhythm on Mr. Mancuso to see whether we should reconsider a pacemaker. He remains minimally responsive, he is in bed. His is present at the bedside. Social History Smoking Status: Unknown if Ever Smoked History of Alcohol Use: Yes (1 glass of wine daily) Review of Systems Review of systems was not obtainable as the patient has severe dementia Medications Cardiovascular: Item Value Date Time Clopidogrel 75 mg 03/17/17 0900 Bisulfate QAM/PO 03/18/17 08 (plAVix TAB) Amlodipine 5 mg 03/17/17 0900 Besylate DAILY/PO 03/18/17821 (Norvasc Tab) Atorvastatin 40 mg 03/16/17 0900 Calcium DAILY/PO 03/18/17 08 (Lipitor Tab) Objective Vital Signs Past 12 Hours Date Time Temp Pulse Resp B/P (MAP) Pulse Ox O2 Delivery O2 Flow Rate FiO2 03/18/17 11:04 36.5 52 18 135/69 (91) 94 Room Air 03/18/17 08:00 Room Air 03/18/17 06:58 36.6 47 20 150/67 (94) 95 Room Air 03/18/17 04:00 Room Air 03/18/17 02:10 36.6 53 18 152/81 (104) 93 Room Air 03/17/17 23:59 Room Air Last Recorded Weight-Kilograms: 76.400 Physical Exam Constitutional: General Apperance: too thin Level of Distress: NAD Lungs: Auscultation: breath sounds normal, no rales/crackles Cardiovascular: Heart Auscultation: bradycardia, irregular rate rhythm Extremities: no edema Data Laboratory Results: Last 24 Hours Test 03/18/17 07:25 White Blood Count 7.71 K/uL Red Blood Count 5.16 M/uL Hemoglobin 16.2 g/dL Hematocrit 47.1 % Mean Corpuscular Volume 91.3 fL Mean Corpuscular Hemoglobin 31.4 pg Mean Corpuscular Hemoglobin Concent 34.4 g/dl RDW Standard Deviation 44.6 fL RDW Coefficient of Variation 13.3 % Platelet Count 157 K/uL Mean Platelet Volume 10.0 fL Creatinine 1.00 mg/dl Est Creatinine Clear Calc Drug Dose 56.2 ml/min Estimated GFR () 78.1 Estimated GFR (Non- 67.4 Telemetry reviewed: Sinus rhythm with frequent second-degree AV block including periods of 2 to one AV block. Heart rates as low as about 30 bpm, one pause due to several nonconducted P waves 3.1 seconds in the past 24 hours. Indicative of high-grade AV block, no evidence of true complete heart block. Assessment and Plan #1. 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 He does not have complete heart block (he does not have AV dissociation that I have seen). I discussed the possibility of a pacemaker with the patient's , her and the family apparently had a discussion about it and have felt that they would prefer not to have a pacemaker in place. They understand that he has a very poor overall prognosis and this would not change that, it is also questionable that it would change symptoms as he seems to not have symptoms related to this arrhythmia. At this point therefore we are planning not to implant a pacemaker. Thank you for allowing me to participate in his care.
[2017-03-18 15:06] VITALS: BP 126/70; PULSE 54; O2SAT 97
--- NOTE | 2017-03-18 16:53 | Progress Note ---
Subjective Date of Service: Mar 18, 2017. Subjective Pt evaluation today including: conversation w/ family ( at bedside), physical exam, chart review, lab review, conversation w/ exchange underwriting consultant (cardiology (Dr. Ortega)) Pain: none seen PO Intake: very good Voiding: incontinence tele - high grade AV block (at least mobitz type 2) once again last night also 3+ second pause no apparent symptoms he remains pleasantly confused during my visit has had, as expected, agitation at night /family do NOT wish to pursue pacemaker placement ROS cannot be obtained due to dementia Problem List Medical Problems: (1) Bradycardia Status: Acute (2) Contusion of multiple sites Status: Acute (3) Dementia Status: Acute (4) Elbow abrasion Status: Acute (5) Fall Status: Acute (6) Hypoxia Status: Acute (7) Pneumonia Status: Acute (8) Second degree atrioventricular block, Mobitz (type) I Status: Acute (9) Symptomatic bradycardia Status: Acute (10) Unresponsive episode Status: Acute Objective Vital Signs Date Time Temp Pulse Resp B/P (MAP) Pulse Ox O2 Delivery O2 Flow Rate FiO2 03/18/17 15:06 54 18 126/70 (88) 97 Room Air 03/18/17 12:00 Room Air 03/18/17 11:04 36.5 52 18 135/69 (91) 94 Room Air 03/18/17 08:00 Room Air 03/18/17 06:58 36.6 47 20 150/67 (94) 95 Room Air 03/18/17 04:00 Room Air 03/18/17 02:10 36.6 53 18 152/81 (104) 93 Room Air 03/17/17 23:59 Room Air 03/17/17 20:00 Room Air 03/17/17 18:59 36.4 58 20 158/83 (108) 95 Room Air Physical Exam General Appearance: no apparent distress ENT: pharynx normal Neck: no JVD Respiratory/Chest: lungs clear, no respiratory distress, no accessory muscle use Cardiovascular: no murmur, + bradycardia, + pertinent finding (irregular) Abdomen: normal bowel sounds, non tender, soft, no organomegaly Extremities: no pedal edema Neurologic/Psychiatric: alert, + disoriented Laboratory Results Last 24 Hours Test 03/18/17 07:25 White Blood Count 7.71 K/uL Red Blood Count 5.16 M/uL Hemoglobin 16.2 g/dL Hematocrit 47.1 % Mean Corpuscular Volume 91.3 fL Mean Corpuscular Hemoglobin 31.4 pg Mean Corpuscular Hemoglobin Concent 34.4 g/dl RDW Standard Deviation 44.6 fL RDW Coefficient of Variation 13.3 % Platelet Count 157 K/uL Mean Platelet Volume 10.0 fL Creatinine 1.00 mg/dl Est Creatinine Clear Calc Drug Dose 56.2 ml/min Estimated GFR () 78.1 Estimated GFR (Non- 67.4 Assessment and Plan 86yo male: 1. TIA vs stroke vs syncope - work-up this admission negative except for mobitz 1 and mobitz 2 AV block on monitor. it is unclear if this caused his symptoms prior to admission or is completely unrelated. carotid duplex normal. echo w/o source of embolus. his neuro exam has been stable. CT head at admission negative. MRI deferred due to suspected difficulties with him laying in the machine due to agitation/dementia. if this was truly a TIA in the setting of chronic aspirin use then he should be switched to plavix for secondary prevention. changed to plavix 03/17/17. lipitor increased to 40mg daily. would d/c him on these 2 agents. 2. dementia with behavioral disturbance - dementia is advanced. b12, TSH, etc in past have been normal. reports galatamine and aricept were d/c in the last few months. if behaviors continue in the hospital then add atypical antipsychotic in lowest dose cautiously. 3. known AAA - no Rx at this time. 4. HTN - improved with increase in amlodipine dose. 5. DVT proph - lovenox. 6. FEN - lytes stable, eating fine. 7. 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 Ortega the patient's /family do NOT wish to pursue pacemaker placement at this time. feels it will not improve his quality of life. I agree with such. 8. code status - confirmed with - DNR, level 5. dispo - [facility] on Sunday Discharge planning: detention facility
[2017-03-18 19:31] VITALS: BP 142/80; PULSE 46; TEMP 36.9; O2SAT 92
[2017-03-18 22:55] VITALS: BP 147/79; PULSE 53; TEMP 36.7; O2SAT 95
[2017-03-19] VITALS (7 sets, daily range): BP systolic 135–156; BP diastolic 65–77; PULSE 52–65; TEMP 36.5–37; O2SAT 93–98
[2017-03-19] MEDS ORDERED: PLV75 PO (08:19)
[2017-03-19] MEDS ORDERED: LPT/40 PO (08:19)
[2017-03-19] MEDS ORDERED: NRV/5 PO (08:19)
[2017-03-19] MEDS: LACTOBACILLUS ACIDOPHILUS (FLORANEX) TAB PO SCH ×3 (08:28→17:41)
[2017-03-19] MEDS: CLOPIDOGREL BISULFATE 75 MG TAB PO SCH (08:29)
[2017-03-19] MEDS: ATORVASTATIN 40 MG TAB PO SCH (08:29)
[2017-03-19] MEDS: ENOXAPARIN 40 MG/0.4 ML SYR SQ SCH (08:29)
[2017-03-19] MEDS: AMLODIPINE BESYLATE 5 MG TAB PO SCH (08:29)
--- NOTE | 2017-03-19 08:29 | Discharge Instructions ---
Discharge Instructions Date of Service Mar 19, 2017. Admission Reason for Admission: Arrhythmia Discharge Discharge Diagnosis / Problem: Mobitz Type 1 and Intermittent Type 2 Discharge Goals Goal(s): Decrease discomfort, Improve function, Improve nutritional status Activity Recommendations Activity Level: Assistance Required Therapies: Physical Therapy, Occupational Therapy . Additional Information Patient informed of condition: Yes Advance Directives: Yes DNR: Yes Level of Care: Skilled Communicable Disease: No Prognosis: Stable Instructions / Follow-Up Instructions / Follow-Up TIA vs Stroke vs Syncope: - Extensive work-up has been negative for CVA -- MRI was deferred to due suspected difficulties related to agitation/dementia - To treat in the setting of possible TIA his ASA has been discontinued and initiated on Plavix and his Lipitor increased to 40 mg daily 2nd Degree Mobitz Type 1 AV Block with Episodes of Mobitz Type 2 AV Block: - Cardiology evaluated patient and discussion with family and providers - it was decided AGAINST pacemaker placement at this time Advanced Dementia with Behavioral Disturbance: - Per - his Galatamine and Aricept were discontinued in the last few months - Consideration for atypical antipsychotics at lowest dose cautiously can be instituted in agitation continues HTN: - Improved with increased dose of Norvasc to 5 mg daily H/O AAA: - no intervention at this time Code Status: DO NOT RESUSCITATE Activity Recommendations: See above Activation of Emergency Medical System: Call 911, immediately, if you experience any of the following: Warning Signs and Symptoms of Stroke: * Sudden numbness or weakness of the face, arm or leg, especially on one side of the body * Sudden confusion, trouble speaking or understanding * Sudden trouble seeing in one or both eyes * Sudden trouble walking, dizziness, loss of balance or coordination * Sudden severe headache with no cause Do not delay calling 911 if you experience any warning signs or symptoms of a stroke. Delay in seeking medical attention may affect what treatments can be given to you. Risk Factors for Stroke: You can reduce your chances of stroke by working with your medical provider to adopt a healthy lifestyle. Some specific ways to lower your chance of stroke are: * If you are a smoker, now is the time to stop smoking cigarettes * If you are diabetic, improve the control of your blood sugars * Avoid excessive amounts of alcohol * Control high blood pressure * Lose weight if you are overweight * Be sure to lead an active lifestyle * Eat a healthy diet low in salt, cholesterol and fat You should know about other risk factors for stroke that you are unable to control. These include: * Age 55 years or older * Male gender * Certain racial groups: , or / * Family History of Stroke, Mini stroke or Heart Attack * Sickle Cell Disease Follow Up: It is important for you to keep your follow up appointments with your medical provider. Current Hospital Diet Patient's current hospital diet: AHA Diet (Heart Healthy) Discharge Diet Recommended Diet: AHA Diet (Heart Healthy) Pending Studies Studies pending at discharge: no Laboratory Results Lipid Panel Test 03/16/17 05:52 Range/Units Triglycerides Level 83 0-150 mg/dl Cholesterol Level 197 0-200 mg/dl HDL Cholesterol 49 mg/dl Cholesterol/HDL Ratio 4.0 LDL Cholesterol, Calculated 131 mg/dl Medical Emergencies . Who to Call and When: Medical Emergencies: If at any time you feel your situation is an emergency, please call 911 immediately. . Non-Emergent Contact Non-Emergency issues call your: Primary Care Provider Call Non-Emergent contact if: you have a fever, your pain is concerning you, you have any medication questions . . "Provider Documentation" section prepared by Stephanie Marin. . Core Measure Problem Core Measures: None
--- NOTE | 2017-03-19 10:47 | Progress Note ---
Subjective Date of Service: Mar 19, 2017. Subjective Pt evaluation today including: conversation w/ patient, conversation w/ family (), physical exam, review of inpatient medication list Pain: no pain PO Intake: adequate Voiding: no voiding problems patient confused, dementia refusing to cooperate with therapy, told patient necessary for discharge, too confused to understand, this is his baseline according to no issues overnight again, discussed diagnosis of heart block with patient's , they do NOT want any interventions Problem List Medical Problems: (1) Bradycardia Status: Acute (2) Contusion of multiple sites Status: Acute (3) Dementia Status: Acute (4) Elbow abrasion Status: Acute (5) Fall Status: Acute (6) Hypoxia Status: Acute (7) Pneumonia Status: Acute (8) Second degree atrioventricular block, Mobitz (type) I Status: Acute (9) Symptomatic bradycardia Status: Acute (10) Unresponsive episode Status: Acute Review of Systems Neurologic: + memory loss All Other Systems: Reviewed and Negative Medications Current Inpatient Medications Medications (Trade) Dose Ordered Sig/[place] Route Start Time Stop Time Status Last Admin Dose Admin Acetaminophen (Tylenol Tab) 650 mg Q4H PRN PO 03/14/17 16:30 04/13/17 16:29 Al Hydrox/Mg Hydrox/Simethicone (Maalox Max Susp) 15 ml Q4H PRN PO 03/14/17 16:30 04/13/17 16:29 Magnesium Hydroxide (Milk Of Magnesia Susp) 30 ml Q12H PRN PO 03/14/17 16:30 04/13/17 16:29 Hydralazine HCl (HydrALAZINE INJ) 10 mg Q6H PRN IV. 03/14/17 16:30 04/13/17 16:29 03/15/17 20:20 10 MG Lactobacillus Acidophilus (Floranex Tab) 4 tab TIDM PO 03/15/17 07:15 04/14/17 07:14 03/19/17 08:28 4 TAB Enoxaparin Sodium (Lovenox Inj) 40 mg QAM SQ 03/16/17 09:00 04/15/17 08:59 03/18/17 08:22 40 MG Atorvastatin Calcium (Lipitor Tab) 40 mg DAILY PO 03/16/17 09:00 04/14/17 08:59 03/19/17 08:29 40 MG Clopidogrel Bisulfate (plAVix TAB) 75 mg QAM PO 03/17/17 09:00 04/16/17 08:59 03/19/17 08:29 75 MG Amlodipine Besylate (Norvasc Tab) 5 mg DAILY PO 03/17/17 09:00 04/14/17 08:59 03/19/17 08:29 5 MG Objective Vital Signs Date Time Temp Pulse Resp B/P (MAP) Pulse Ox O2 Delivery O2 Flow Rate FiO2 03/19/17 08:13 36.8 62 18 141/66 (91) 96 03/19/17 04:00 Room Air 03/19/17 02:44 36.6 54 18 156/69 (98) 98 Room Air 03/19/17 00:00 Room Air 03/18/17 22:55 36.7 53 18 147/79 (101) 95 Room Air 03/18/17 20:00 Room Air 03/18/17 19:31 36.9 46 18 142/80 (100) 92 Room Air 03/18/17 16:00 Room Air 03/18/17 15:06 54 18 126/70 (88) 97 Room Air 03/18/17 12:00 Room Air 03/18/17 11:04 36.5 52 18 135/69 (91) 94 Room Air Physical Exam General Appearance: WD/WN, no apparent distress Neck: supple, no adenopathy, no JVD, trachea midline Respiratory/Chest: chest non-tender, lungs clear, normal breath sounds, no respiratory distress, no accessory muscle use Cardiovascular: regular rate, rhythm, no edema, no gallop, no JVD, no murmur Abdomen: normal bowel sounds, non tender, soft, no organomegaly Extremities: normal range of motion, non-tender, normal inspection, no pedal edema, no calf tenderness, pelvis stable Neurologic/Psychiatric: log skidder II-XII nml as tested, no motor/sensory deficits, alert, normal mood/affect, oriented x 3 Skin: normal color, warm/dry, no rash Lymphatic: no adenopathy Assessment and Plan 86yo male: 1. TIA vs stroke vs syncope - work-up this admission negative except for mobitz 1 and mobitz 2 AV block on monitor. it is unclear if this caused his symptoms prior to admission or is completely unrelated. family does not want a pacemaker or any type of surgery carotid duplex normal. echo w/o source of embolus. his neuro exam has been stable. CT head at admission negative. MRI deferred due to suspected difficulties with him laying in the machine due to agitation/dementia. if this was truly a TIA in the setting of chronic aspirin use then he should be switched to plavix for secondary prevention. changed to plavix 03/17/17. lipitor increased to 40mg daily. will discharge him on these changes 2. dementia with behavioral disturbance - dementia is advanced. b12, TSH, etc in past have been normal. reports galatamine and aricept were d/c in the last few months. patient will NOT participate with therapy even after I discussed with him, he does not understand needs placement at this time, family cannot take care of him safely at home 3. known AAA - no Rx at this time. 4. HTN - improved with increase in amlodipine dose. 5. DVT proph - lovenox. 6. FEN - lytes stable, eating fine. 7. 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 Ortega the patient's /family do NOT wish to pursue pacemaker placement at this time. feels it will not improve his quality of life. I agree with such. 8. code status - confirmed with - DNR, level 5. want to d/c to [facility] today, need insurance authorization again, NO plans for pacemaker again, the patient REFUSES to participate in therapy, does not change his situation of advanced dementia, needs placement Discharge planning: halfway facility
[2017-03-20 07:21] VITALS: BP 151/70; PULSE 50; TEMP 36.8; O2SAT 92
[2017-03-20] MEDS: ATORVASTATIN 40 MG TAB PO SCH (07:44)
[2017-03-20] MEDS: AMLODIPINE BESYLATE 5 MG TAB PO SCH (07:44)
[2017-03-20] MEDS: CLOPIDOGREL BISULFATE 75 MG TAB PO SCH (07:44)
[2017-03-20] MEDS: LACTOBACILLUS ACIDOPHILUS (FLORANEX) TAB PO SCH ×3 (07:44→17:35)
[2017-03-20] MEDS: ENOXAPARIN 40 MG/0.4 ML SYR SQ SCH (07:44)
[2017-03-20 16:01] VITALS: BP 115/76; PULSE 61; TEMP 36.7; O2SAT 95
--- NOTE | 2017-03-20 16:41 | Progress Note ---
Subjective Date of Service: Mar 20, 2017. Subjective Pt evaluation today including: conversation w/ patient, conversation w/ family , physical exam, review of inpatient medication list Pain: no pain PO Intake: adequate Voiding: no voiding problems no new issues, plan to go to [facility] tomorrow Problem List Medical Problems: (1) Bradycardia Status: Acute (2) Contusion of multiple sites Status: Acute (3) Dementia Status: Acute (4) Elbow abrasion Status: Acute (5) Fall Status: Acute (6) Hypoxia Status: Acute (7) Pneumonia Status: Acute (8) Second degree atrioventricular block, Mobitz (type) I Status: Acute (9) Symptomatic bradycardia Status: Acute (10) Unresponsive episode Status: Acute Review of Systems cannot review, dementia Medications Current Inpatient Medications Medications (Trade) Dose Ordered Sig/Leesa Route Start Time Stop Time Status Last Admin Dose Admin Acetaminophen (Tylenol Tab) 650 mg Q4H PRN PO 03/14/17 16:30 04/13/17 16:29 Al Hydrox/Mg Hydrox/Simethicone (Maalox Max Susp) 15 ml Q4H PRN PO 03/14/17 16:30 04/13/17 16:29 Magnesium Hydroxide (Milk Of Magnesia Susp) 30 ml Q12H PRN PO 03/14/17 16:30 04/13/17 16:29 Hydralazine HCl (HydrALAZINE INJ) 10 mg Q6H PRN IV. 03/14/17 16:30 04/13/17 16:29 03/15/17 20:20 10 MG Lactobacillus Acidophilus (Floranex Tab) 4 tab TIDM PO 03/15/17 07:15 04/14/17 07:14 03/20/17 12:27 4 TAB Enoxaparin Sodium (Lovenox Inj) 40 mg QAM SQ 03/16/17 09:00 04/15/17 08:59 03/20/17 07:44 40 MG Atorvastatin Calcium (Lipitor Tab) 40 mg DAILY PO 03/16/17 09:00 04/14/17 08:59 03/20/17 07:44 40 MG Clopidogrel Bisulfate (plAVix TAB) 75 mg QAM PO 03/17/17 09:00 04/16/17 08:59 03/20/17 07:44 75 MG Amlodipine Besylate (Norvasc Tab) 5 mg DAILY PO 03/17/17 09:00 04/14/17 08:59 03/20/17 07:44 5 MG Objective Vital Signs Date Time Temp Pulse Resp B/P (MAP) Pulse Ox O2 Delivery O2 Flow Rate FiO2 03/20/17 16:01 36.7 61 18 115/76 (89) 95 Room Air 03/20/17 16:00 Room Air 03/20/17 08:00 Room Air 03/20/17 07:21 36.8 50 18 151/70 (97) 92 Room Air 03/20/17 00:15 Room Air 03/19/17 23:56 36.8 52 18 135/74 (94) 93 Room Air Physical Exam General Appearance: WD/WN, no apparent distress Respiratory/Chest: chest non-tender, lungs clear, normal breath sounds, no respiratory distress, no accessory muscle use Cardiovascular: regular rate, rhythm, no edema, no gallop, no JVD, no murmur Abdomen: normal bowel sounds, non tender, soft, no organomegaly Extremities: normal range of motion, non-tender, normal inspection, no pedal edema, no calf tenderness, pelvis stable Neurologic/Psychiatric: gerontology aide II-XII nml as tested, no motor/sensory deficits, alert, + disoriented Skin: normal color, warm/dry, no rash Assessment and Plan 86yo male: 1. TIA vs stroke vs syncope - work-up this admission negative except for mobitz 1 and mobitz 2 AV block on monitor. it is unclear if this caused his symptoms prior to admission or is completely unrelated. family does not want a pacemaker or any type of surgery carotid duplex normal. echo w/o source of embolus. his neuro exam has been stable. CT head at admission negative. MRI deferred due to suspected difficulties with him laying in the machine due to agitation/dementia. if this was truly a TIA in the setting of chronic aspirin use then he should be switched to plavix for secondary prevention. changed to plavix 03/17/17. lipitor increased to 40mg daily. will discharge him on these changes 2. dementia with behavioral disturbance - dementia is advanced. b12, TSH, etc in past have been normal. reports galatamine and aricept were d/c in the last few months. patient will NOT participate with therapy even after I discussed with him, he does not understand needs placement at this time, family cannot take care of him safely at home 3. known AAA - no Rx at this time. 4. HTN - improved with increase in amlodipine dose. 5. DVT proph - lovenox. 6. FEN - lytes stable, eating fine. 7. 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 Ortega the patient's /family do NOT wish to pursue pacemaker placement at this time. feels it will not improve his quality of life. I agree with such. 8. code status - confirmed with - DNR, level 5. plan to d/c to [facility] tomorrow, no insurance coverage Discharge planning: custodial facility
[2017-03-21 00:11] VITALS: BP 154/73; PULSE 50; TEMP 36.3; O2SAT 95
[2017-03-21 07:12] VITALS: BP 154/53; PULSE 56; TEMP 36.6; O2SAT 94
[2017-03-21] MEDS: LACTOBACILLUS ACIDOPHILUS (FLORANEX) TAB PO SCH ×2 (07:30→13:07)
[2017-03-21] MEDS: CLOPIDOGREL BISULFATE 75 MG TAB PO SCH (07:30)
[2017-03-21] MEDS: AMLODIPINE BESYLATE 5 MG TAB PO SCH (07:30)
[2017-03-21] MEDS: ATORVASTATIN 40 MG TAB PO SCH (07:30)
[2017-03-21] MEDS: ENOXAPARIN 40 MG/0.4 ML SYR SQ SCH ×2 (07:31→08:30)
[2017-03-21 08:39] LABS: HEMATOCRIT 46.5 % (42-52); MEAN CELL VOLUME 91.9 fL (80-100); MEAN CORPUSCULAR HGB CONC 33.8 g/dl (32-36); MEAN PLATELET VOLUME 9.9 fL (7.4-10.4); PLATELET COUNT 164 K/uL (130-400); RED BLOOD COUNT 5.06 M/uL (4.7-6.1); WHITE BLOOD COUNT 7.38 K/uL (4.8-10.8)
[2017-03-21 09:11] LABS: CREATININE 1.2 mg/dl (0.60-1.40)
[2017-03-21 11:26] VITALS: BP 154/53; PULSE 56; TEMP 36.6; O2SAT 94
--- NOTE | 2017-03-21 14:24 | Discharge Summary ---
Discharge Summary Date of Service Mar 21, 2017. Discharge Summary Admission Date: Mar 14, 2017 at 17:50 Discharge Date: Mar 19, 2017 Discharge Disposition: senior care facility Principal Diagnosis: Mobitz Type 1 with Intermittent Type 2 and Complete Heart Block Problems/Secondary Diagnoses: 1. Dementia with Behavioral Disturbance 2. AAA 3. HTN Immunizations: Have You Had Influenza Vaccine: Yes History of Tetanus Vaccine?: Yes Tetanus Immunization Date: May 19, 2005 History of Pneumococcal: Yes History of Hepatitis B Vaccine: No Procedures: CT HEAD WITHOUT CONTRAST (CT) FINDINGS: No intra or extra-axial mass lesions are visualized. There is no CT evidence of acute cortical infarction. There is no evidence of midline shift. There is no acute hemorrhage. No calvarial fractures are visualized. There are patchy white matter hypodensities likely on a small vessel basis. There is mild ventricular dilatation, likely secondary to volume loss There is no evidence of acute sinusitis IMPRESSION: No acute intracranial findings SINGLE VIEW CHEST FINDINGS: An AP, portable, upright chest radiograph is compared to study dated 03/05/2017 and correlated with chest CT dated 10/21/2015. The examination is degraded by portable technique and patient rotation. The heart is enlarged and there is atherosclerotic calcification of the thoracic aorta. The pulmonary vasculature is noncongested. Chronic interstitial thickening is similar to previous. There are bibasilar airspace opacities. No large pleural effusion or pneumothorax is seen. Biapical scarring is observed. The skeletal structures are osteopenic. The bony thorax is grossly intact. IMPRESSION: 1. Cardiomegaly without radiographic evidence of congestive failure. 2. There are bibasilar airspace opacities. This could represent atelectasis versus an infectious/inflammatory pneumonitis. Clinical correlation will be required. ULTRASOUND OF THE CAROTID ARTERIES FINDINGS: Blood pressures were not assessed. The carotid arteries are patent bilaterally and demonstrate antegrade flow. There is moderate echogenic shadowing atherosclerotic plaque seen bilaterally. Normal doppler arterial waveforms are seen throughout. Velocity measurements are listed below. Common carotid peak systolic velocity (cm/sec): RIGHT: 62 LEFT: 78 ICA proximal peak systolic velocity (cm/sec): RIGHT: 59 LEFT: 62 ICA mid peak systolic velocity (cm/sec): RIGHT: 48 LEFT: 61 ICA distal peak systolic velocity (cm/sec): RIGHT: 83 LEFT: 53 ICA/CC peak systolic ratio: RIGHT: 1.3 LEFT: 0.8 Antegrade flow was shown in the vertebral arteries. The external carotid arteries are patent. IMPRESSION: 1. Atherosclerotic plaque with no sonographic evidence of hemodynamically significant stenosis in the right or left carotid arterial system. 2. Antegrade flow is shown in the vertebral arteries. Consultations: 1. Cardiology 2. PT/OT Medication Reconciliation New Medications: Clopidogrel Bisulfate (Clopidogrel) 75 Mg Tab 75 MG PO QAM for 30 Days, #30 TAB Changed Medications: Amlodipine Besylate (Amlodipine Besylate) 5 Mg Tab 5 MG PO DAILY for 30 Days, #30 TABS (Changed from: Amlodipine Besylate (Norvasc ) 2.5 Mg Tab 2.5 Mg PO DAILY #30 ) Atorvastatin (Lipitor) 40 Mg Tab 40 MG PO DAILY for 30 Days, #30 TAB (Changed from: Atorvastatin (Lipitor) 10 Mg Tab 10 Mg PO DAILY) Discontinued Medications: Aspirin (Aspirin Chewable) 81 Mg Chew 81 MG PO DAILY Discharge Exam ROS deferred as patient is sleeping and agitates with disturbances due to dementia Physical Exam: General Appearance: no apparent distress Neck: supple, no JVD, trachea midline Respiratory/Chest: lungs clear, normal breath sounds, no respiratory distress, no accessory muscle use Cardiovascular: no gallop, no murmur, + bradycardia Abdomen / GI: normal bowel sounds, non tender (no facial grimaces or withdrawal from pain), soft Neurologic/Psychiatric: + pertinent finding (asleep) Skin: normal color, warm/dry Hospital Course ADMISSION: This patient is an 86-year-old male with a history of dementia that was brought to the emergency department by EMS for an episode of unresponsiveness. The patient's reports that she was unable to wake him, which prompted her to call EMS. Upon arrival, there was questionable left- sided weakness. The patient is reportedly now back to baseline. Most of the history is taken from the as the patient has severe dementia. He currently is able to deny any pain. No history of CVA. No reported illnesses according to the . Of note, EMS crew was concern that there is left facial droop. The patient's tells me that this is chronic. HOSPITAL COURSE: Mr. Mancuso was admitted for possible TIA vs Syncope with evidence of Mobitz Type 1 with intermittent Type 2 and Complete Heart Block observed. Neurological work-up was unremarkable but MRI was not obtained due to suspicion for agitation due to his underlying dementia. His medications were adjusted in the setting of possible TIA. His ASA was D/C'd and he was initiated on Plavix 75 mg daily and his Lipitor was increased to 40 mg daily. Due to hypertension and TIA/CVA prevention his Norvasc was increased to 5 mg daily with better BP control. Cardiology followed due to his noted arrhythmia. Patient had a tendency to drop in the 20-30s when converted to complete block. Multiple long discussions with and medical providers and the decision was to not pursue pacemaker placement. He was not adequately able to participate in PT/OT services but family cannot care for him safely at home. Rehab was denied but family agreed to cover the expense to have him placed with likely permanent placement. Patient was converted to a DO NOT RESUSCITATE. Patient is hemodynamically stable and optimal for D/C to [facility]. Total Time Spent: Greater than 30 minutes This includes examination of the patient, discharge planning, medication reconciliation, and communication with other providers. Discharge Instructions Please refer to the electronic Patient Visit Report (Discharge Instructions) for additional information. Additional Copies To Wilfred Fernandez
== END 2017-03-21 14:00 | DRG 310 ==
LOC: C.EDB 13:33 → ENRESERV 17:31 → C.MSICU 17:50 → ENRESERV 03-15 11:01 → C.2T 03-15 11:03 → ENRESERV 03-19 14:43 → C.4E 03-19 15:23
PROVIDERS: ADMIT Hospitalist; ATTEND Internal Medicine
DX: I44.1 Atrioventricular block, second degree (principal); I44.2 Atrioventricular block, complete; R29.810 Facial weakness; F03.90 Unspecified dementia, unspecified severity, without behavioral disturbance, psychotic disturbance, mood disturbance, and anxiety; E11.9 Type 2 diabetes mellitus without complications; I71.4 Abdominal aortic aneurysm, without rupture; I10 Essential (primary) hypertension; E78.00 Pure hypercholesterolemia, unspecified; Z79.82 Long term (current) use of aspirin; Z79.899 Other long term (current) drug therapy; Z87.891 Personal history of nicotine dependence; Z66 Do not resuscitate